=== PATIENT | male | born 1940 | race Caucasian/White ===

== ENCOUNTER 2016-09-27 21:52 | Inpatient (IN) | payer MEDICARE, OTHER ==
[~2016-09-27] VITALS: Ht 167.6 cm; Wt 87.9 kg
[~2016-09-27 21:52] MED LIST: ATOR40TA69 PO; CALC600T12 PO; FAMO20T PO; FERR-74 PO; HYDR-3825 PO; LEVO750T9 PO; LORA0.5T PO; MAGN400T23 PO; MELA5TAB14 PO; NICO1PAT5 TOPICAL; POTA10TA12 PO; PROP60CA8 PO; TAMS0.4C98 PO; Thiamine PO
[2016-09-27 21:54] VITALS: BP 195/105; PULSE 74; RESP 16; O2SAT 96
--- NOTE | 2016-09-27 22:10 | ED.REPORT ---
HPI-General Illness Date of Service Sep 27, 2016 ED Provider: Ashok Davis MD The patient is a 75 year old male with a history of Afib, CVA and HTN who presents to the ED due to bilateral swelling in his ankles and feet for the past 3 to 4 weeks. He has experienced mild swelling previously, but never this severe. He denies any incident that could have caused his symptoms. The pt also states that just today, he has noticed stiffness and swelling in his right arm as well as increasing dyspnea. He was hospitalized for pneumonia a year ago. Pt denies neck pain and a productive cough. His son was diagnosed with pulmonary embolism without known cause. Nursing Notes Stated Complaint: SWOLLEN Chief Complaint: General Complaint Nursing Notes Reviewed: Yes Allergies: Coded Allergies: No Known Allergies (Verified Allergy, Unknown, 12/18/15) Scheduled Atorvastatin Calcium (Atorvastatin Calcium) 40 Mg Tablet 40 MG PO HS Propranolol ER (Inderal LA) 60 Mg Capsule 60 MG PO DAILY Tamsulosin (Flomax) 0.4 Mg Capsule 0.4 MG PO DAILY Trazodone (Trazodone) 50 Mg Tablet 100 MG PO HS General Time Seen by MD: 22:10 Chief Complaint Other (bilateral ankle and foot swelling) Hx Obtained From: Patient Arrived By: Walk-in Sudden in Onset?: Yes Onset Occurred: More than a week ago... (3 weeks) Symptom Duration: Since onset Severity: Current: No pain currently Recent Healthcare: No recent doctor visit, No recent hospitalization Past Medical History Past Medical History 1. 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 Peptic ulcer disease. 3. Depression and anxiety. 4. Hypertension. 4. Peripheral vascular disease with right superficial femoral artery stenosis August 2013 by Doppler. 6. Esophageal stricture with need for intermittent dilatation (last dilatation was January 02, [address] Tian ) EGD(January 02, 2014) Esophageal peptic stricture status post dilatation to 11.5 mm. Ulcerative esophagitis. Sliding hiatal hernia. 7. Macular degeneration. 8. Ulcerative esophagitis and peptic stricture 9. Hx of Daily alcohol dependence 10. Hx of clostridium perfringens 11. Atrial fibrillation, not on blood thinner currently Reports: Hypertension, Stroke Reports: Atrial fibrillation Past Surgical History 1. Tonsillectomy. 2. Left rotator cuff repair. Family History pulmonary embolism Smoking History Former Smoker Social History Son is POA Alcohol Use: 3-5 per day Drug Use: Denies drug use Other Social History: Smokeless tobacco, Good social support, Lives alone, Ambulatory Status Independent Review of Systems Full Review of Systems Respiratory: Reports: Shortness of breath, Denies: Non-productive cough Musculoskeletal: Reports: Extremity swelling (bilateral ankle and feet swelling ), Denies: Extremity pain, Neck pain Complete sys rev & neg: except as marked. Physical Exam Vital Signs Vital Signs Date Time Temp Pulse Resp B/P Pulse Ox O2 Delivery O2 Flow Rate FiO2 09/27/16 23:19 61 12 156/85 94 Room Air 09/27/16 21:54 36.3 74 16 195/105 96 Room Air Initial VS: Reviewed Head / Eyes: Atraumatic, Normocephalic, PERRL ENT: Mucous membranes moist Abdomen / GI: Soft, Non-tender, No guarding, No rebound, No distention Skin: Warm, Dry General/Constitutional: Awake, Alert, No acute distress Neck: Non-tender Neck Vascular: Positive: JVD mild (3cm sitting upright above sternal notch) Respiratory / Chest: No wheezing, No retractions crackles bilateral bases Cardiovascular: Heart rate NL, Regular rhythm, Heart sounds NL Lower Ext Edema: Positive: Bilateral 2+ (chronic) Interpretation & Diagnostics Interpretation & Diagnostics: CT PULMONARY ANGIOGRAM IMPRESSION: No evidence for PE Cardiomegaly with prominence of the upper lobe and central pulmonary veins and bilateral pleural effusions. In the proper clinical setting pulmonary venous hypertension should be considered. Radiologist: Denis Spencer M.D. Lab Results Interpretation Result Diagram: 09/27/16222909/27/162229 Test 09/27/16 22:30 09/27/16 22:45 White Blood Count 10.1th/mm3 (3.8-10.1) Red Blood Count 4.94mil/mm3 (4.40-5.80) Hemoglobin 15.3g/dL (13.8-17.2) Hematocrit 46.1% (41.0-50.0) Mean Corpuscular Volume 93.3fL (81-100) Mean Corpuscular Hemoglobin 31.0pg (27.0-35.0) Mean Corpuscular Hemoglobin Concent 33.2% (32.0-37.0) Red Cell Distribution Width 13.7% (12.3-15.4) Platelet Count 187bil/L (150-400) Neutrophils (%) (Auto) 60.0% (40-74) Lymphocytes (%) (Auto) 22.6% (14-46) Monocytes (%) (Auto) 13.8% (4-12) Eosinophils (%) (Auto) 2.9% (0-5) Basophils (%) (Auto) 0.3% (0-3) Prothrombin Time 10.2sec (8.1-12.5) Prothromb Time International Ratio 0.95ratio Activated Partial Thromboplast Time 27.0sec (22.8-33.0) D-Dimer 0.70mg/L FEU (<0.50) Sodium Level 139mEq/L (134-144) Potassium Level 4.0mEq/L (3.5-5.2) Chloride Level 101mEq/L (97-108) Carbon Dioxide Level 23mmol/L (18-29) Blood Urea Nitrogen 19mg/dL (8-27) Creatinine 1.09mg/dL (0.76-1.27) Estimat Glomerular Filtration Rate 70mL/min (>59) Glucose Level 99mg/dL (60-99) Calcium Level 9.7mg/dL (8.5-10.1) Magnesium Level 2.1mg/dL (1.6-2.6) Total Bilirubin 0.5mg/dL (0.0-1.2) Aspartate Amino Transf (AST/SGOT) 18U/L (0-50) Alanine Aminotransferase (ALT/SGPT) 18U/L (0-44) Alkaline Phosphatase 79U/L (25-160) Troponin T 0.010ug/L (0.0-0.011) Pro-B-Type Natriuretic Peptide 2137pg/mL (0-486) Total Protein 7.4g/dL (6.4-8.4) Albumin 4.2g/dL (3.4-5.0) Thyroid Stimulating Hormone (TSH) 5.300uIU/mL (0.450-4.500) Urine Color Straw (YELLOW) Urine Appearance Clear (CLEAR,HAZY) Urine pH 7.0 (5.0-8.0) Urine Specific [place] 1.010 (1.003-1.035) Urine Protein Negativemg/dL (NEG,TRACE) Urine Glucose (UA) Negativemg/dL (NEGATIVE) Urine Ketones Negativemg/dL (NEGATIVE) Urine Occult Blood Negative (NEGATIVE) Urine Nitrite Negative (NEGATIVE) Urine Bilirubin Negative (NEGATIVE) Urine Urobilinogen Normalmg/dL (NORMAL) Urine Leukocyte Esterase Negative (NEGATIVE) Urine RBC 0-2/hpf (0-2) Urine WBC 0-5/hpf (0-5) Urine Epithelial Cells Occasional/hpf (NONE-MOD) Urine Crystals None seen (NONE SEEN) Urine Bacteria None/hpf (NONE-FEW) Urine Hyaline Casts None/lpf (NONE) Urine Granular Casts None seen (NONE SEEN) Urine Waxy Casts None seen (NONE SEEN) Urine Red Blood Cell Casts None seen (NONE SEEN) Urine White Blood Cell Casts None seen (NONE SEEN) Urine Mucus None seen (None Seen) Urine Trichomonas None seen (NONE SEEN) Urine Yeast None (NONE SEEN) Urine Culture Reflexed Not indicated ECG Interpretation ECG Interpretation: atrial fibrillation (rate 72) Time: 10:52 Interpreted by: ED physician X-Ray Chest Interpretation Chest Xray Interpretation: IMPRESSION: no acute findings View: Portable Interpretation / Wet Read by: Wet read ED physician Re-Eval/Medical Decision Med Decision/Clinical Course 76-year-old with bilateral leg edema and dyspnea which appears to be due to congestive heart failure. Ultrasounds morning to exclude clot but this appears to be related to fluid overload Admitted now for cardiac evaluation including completion of rule out protocol, diuresis, and echocardiogram. Time of Eval: 00:16 Re-Evaluation/Progress Note: Pt rechecked. Informed pt of options for admission or discharge. Pt prefers to remain in the hospital for further evaluation. All questions addressed. Consultation : Referral / Consult Name: Michael Maher MD Consulted With: Hospitalist Call Returned at: 00:31 Explosive Ordnance Technician: Agrees with eval, Agrees with plan Note: Case discussed. Dr. Maher agrees with plan. Counseled Regarding: Diagnosis, Lab results, Need for admission Discharge & Departure Primary Impression: CHF (congestive heart failure) Congestive heart failure type: unspecified congestive heart failure type Congestive heart failure chronicity: unspecified congestive heart failure chronicity Qualified Code: I50.9 - Heart failure, unspecified Additional Impressions: Peripheral edema Atrial fibrillation Atrial fibrillation type: chronic Qualified Code: I48.2 - Chronic atrial fibrillation Disposition: ADMITTED TO HOSPITAL Discharge Condition All VS Reviewed: Yes Condition: Stable Referrals: Carlitos Porter MD (PCP) Ila Attestation Portion of this note were transcribed by Arlene Choi. I, Dr. Davis, personally performed the history, physical exam, and medical decision-making: I reviewed and confirmed the accuracy for the information in the transcribed note. Signed by: ila No, 09/28/16 010 copies to: Carlitos Porter MD, Christopher W MD Sep 27, 2016 22:10 Arlene Choi Sep 27, 2016 22:34 Signed by: ila No, 09/28/160 copies to: Carlitos Porter MD, Christopher W MD Sep 27, 2016 22:10 Arlene Choi Sep 27, 2016 22:34 Ashok Davis MD Sep 27, 2016 22:10 Arlene Choi Sep 27, 2016 22:34
[2016-09-27 22:48] LABS: BASOPHILS % (AUTO) 0.3 % (0-3); EOSINOPHILS % (AUTO) 2.9 % (0-5); MONOCYTES % (AUTO) 13.8 % (4-12); Mean Corpuscular Volume 93.3 fL (81-100); Platelet Count 187 bil/L (150-400)
[2016-09-27 23:04] LABS: INR 0.95 ratio
[2016-09-27 23:09] LABS: TROPONIN T 0.01 ug/L (0.0-0.011)
[2016-09-27 23:19] VITALS: BP 156/85; PULSE 61; RESP 12; O2SAT 94
[2016-09-27 23:20] LABS: Magnesium 2.1 mg/dL (1.6-2.6)
[2016-09-27 23:53] LABS: APPEARANCE,URINE CLEAR (CLEAR,HAZY); COLOR,URINE STRAW (YELLOW); OCCULT BLOOD,URINE NEGATIVE (NEGATIVE); UROBILINOGEN,URINE NORMAL (NORMAL)
[2016-09-28] VITALS (10 sets, daily range): BP systolic 109–204; BP diastolic 71–117; PULSE 64–82; RESP 16–18; O2SAT 93–97
[2016-09-28] MEDS ORDERED: Alum-Mag Hydrox-Simeth 30 mL Suspension PO PRN (00:35)
[2016-09-28] MEDS ORDERED: Ondansetron 2 mg/mL 2 mL Inj IVPUSH PRN (00:35)
[2016-09-28] MEDS ORDERED: Senna-Docusate 8.6-50 mg Tablet PO PRN (00:35)
[2016-09-28] MEDS ORDERED: Polyethylene Glycol (PEG) 17 Gm Powder PO PRN (00:35)
[2016-09-28] MEDS ORDERED: Furosemide 10 mg/mL 4 mL Inj IVPUSH ONE (01:25)
[2016-09-28] MEDS ORDERED: TRAZ-115 PO (01:35)
[2016-09-28] MEDS ORDERED: Nitroglycerin 2% 1 Gm Ointment TOPICAL ONE (02:40)
--- NOTE | 2016-09-28 03:02 | PCM.HPMED ---
Subjective Date of Service Sep 28, 2016 Primary Provider: Admitting Physician: Primary Care Physician: Diego Owusu MD Attending Physician: Admit Status: From the Emergency Department, Full Admit, Remote Telemetry Chief Complaint: Increased leg edema with dyspnea History of Present Illness: Erik Mary is a 75 year old male with Paroxysmal Atrial Fibrillation, Stroke and Hypertension who presents to [facility] emergency department due to bilateral swelling in his ankles and feet and dyspnea on exertion. Duration for the past 3 to 4 weeks. He has experienced mild swelling previously , but never this severe. Today, he has noticed stiffness and swelling in his right arm as well. He denied any orthopnea or paroxysmal nocturnal dyspnea. He is compliant with his medications including Propranolol and Statin. He denies eating alot of salt. He denies any chest pain or productive cough He was hospitalized for pneumonia a year ago. His son was diagnosed with pulmonary embolism. He lives alone independently able to perform activities of daily living. Previous episode of atrial fibrillation but not sustained. Case discussed with Dr Davis, Ct chest showed no Pulmonary embolism but Lasix given with plans to admit. Review of Systems: Pertinent positives as noted in HPI. All other systems were reviewed and are negative Allergies Coded Allergies: No Known Allergies (Verified Allergy, Unknown, 12/18/15) Home Medications From [facility], not yet confirmed Erik Mary [phone] 1940 08/21/2016 01:50 PM 1/8 atorvastatin 40 mg tablet take 1 tablet by oral route every day Trazodone 100 mg 1 tab HS for sleep propranolol 80 mg tablet take 1 tablet by oral route every day tamsulosin 0.4 mg capsule take 1 capsule by oral route every day 1/2 hour following the same meal each day PMH Hypertension Sick sinus syndrome Cerebral cavernous malformation. 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 Tian ) EGD(January 02, 2014) : Esophageal peptic stricture status post dilatation to 11.5 mm. Ulcerative esophagitis. Sliding hiatal hernia Macular degeneration Ulcerative esophagitis and peptic stricture Nodular prostate/BPH without obstruction . Surgical History Rotator cuff repair Family History reviewed, Denies FHx of diabetes, colon cancer, lung cancer Admits to breast cancer, prostate cancer Son diagnosed with Pulmonary embolism Social History Hx Alcohol Use: Yes (Reports: daily mug of beer, plus occasional wine, double shots hard liquor) Hx Substance Use: No Hx Tobacco Use: Yes (chew 1 can every 3-4 days; quit smoking x30 years ago) Smoking Status: Former Smoker Living Arrangement: Alone Exam Vital Signs Vital Sign - Last Date Time Temp Pulse Resp B/P Pulse Ox O2 Delivery O2 Flow Rate FiO2 09/27/16 23:19 61 12 156/85 94 Room Air 09/27/16 21:54 36.3 Exam General: Alert, Oriented X3, Cooperative, No acute Distress Eyes: PERRLA, Scleral Anicteric Mouth: Mouth Normal, Mucous Membranes Moist/[place] Neck: Supple, no Thyromegaly, trachea central. Chest & Lungs: decreased breathe sounds at bases Cardiovascular: Normal S1, Normal S2, No Murmurs/Rubs/Gallops, Regular Rate/ Rhythm, (No JVD, 1 + peripheral edema) Pulses: Radial (present and equal), Dorsalis Pedi (present and equal) Abdomen: Soft, Non-tender, Non-distended, Normoactive bowel tones. Musculoskeletal: Unremarkable. Normal range of motion, no swollen or erythematous joints Extremities: 1 + leg edema, no cyanosis, no clubbing. Skin: No rashes. Warm and dry, no erythematous areas Neurological: Grossly neurologically intact, has generalized weakness, Normal Speech, Sensation Intact Lymphatic: Lymph nodes Cervical and Axillary not palpable. Lab and Diagnostics Labs Laboratory Tests Test 09/27/16 22:30 09/27/16 22:45 White Blood Count 10.1th/mm3 (3.8-10.1) Red Blood Count 4.94mil/mm3 (4.40-5.80) Hemoglobin 15.3g/dL (13.8-17.2) Hematocrit 46.1% (41.0-50.0) Mean Corpuscular Volume 93.3fL (81-100) Mean Corpuscular Hemoglobin 31.0pg (27.0-35.0) Mean Corpuscular Hemoglobin Concent 33.2% (32.0-37.0) Red Cell Distribution Width 13.7% (12.3-15.4) Platelet Count 187bil/L (150-400) Neutrophils (%) (Auto) 60.0% (40-74) Lymphocytes (%) (Auto) 22.6% (14-46) Monocytes (%) (Auto) 13.8% (4-12) Eosinophils (%) (Auto) 2.9% (0-5) Basophils (%) (Auto) 0.3% (0-3) Prothrombin Time 10.2sec (8.1-12.5) Prothromb Time International Ratio 0.95ratio Activated Partial Thromboplast Time 27.0sec (22.8-33.0) D-Dimer 0.70mg/L FEU (<0.50) Sodium Level 139mEq/L (134-144) Potassium Level 4.0mEq/L (3.5-5.2) Chloride Level 101mEq/L (97-108) Carbon Dioxide Level 23mmol/L (18-29) Blood Urea Nitrogen 19mg/dL (8-27) Creatinine 1.09mg/dL (0.76-1.27) Estimat Glomerular Filtration Rate 70mL/min (>59) Glucose Level 99mg/dL (60-99) Calcium Level 9.7mg/dL (8.5-10.1) Magnesium Level 2.1mg/dL (1.6-2.6) Total Bilirubin 0.5mg/dL (0.0-1.2) Aspartate Amino Transf (AST/SGOT) 18U/L (0-50) Alanine Aminotransferase (ALT/SGPT) 18U/L (0-44) Alkaline Phosphatase 79U/L (25-160) Troponin T 0.010ug/L (0.0-0.011) Pro-B-Type Natriuretic Peptide 2137pg/mL (0-486) Total Protein 7.4g/dL (6.4-8.4) Albumin 4.2g/dL (3.4-5.0) Urine Color Straw (YELLOW) Urine Appearance Clear (CLEAR,HAZY) Urine pH 7.0 (5.0-8.0) Urine Specific [place] 1.010 (1.003-1.035) Urine Protein Negativemg/dL (NEG,TRACE) Urine Glucose (UA) Negativemg/dL (NEGATIVE) Urine Ketones Negativemg/dL (NEGATIVE) Urine Occult Blood Negative (NEGATIVE) Urine Nitrite Negative (NEGATIVE) Urine Bilirubin Negative (NEGATIVE) Urine Urobilinogen Normalmg/dL (NORMAL) Urine Leukocyte Esterase Negative (NEGATIVE) Urine RBC 0-2/hpf (0-2) Urine WBC 0-5/hpf (0-5) Urine Epithelial Cells Occasional/hpf (NONE-MOD) Urine Crystals None seen (NONE SEEN) Urine Bacteria None/hpf (NONE-FEW) Urine Hyaline Casts None/lpf (NONE) Urine Granular Casts None seen (NONE SEEN) Urine Waxy Casts None seen (NONE SEEN) Urine Red Blood Cell Casts None seen (NONE SEEN) Urine White Blood Cell Casts None seen (NONE SEEN) Urine Mucus None seen (None Seen) Urine Trichomonas None seen (NONE SEEN) Urine Yeast None (NONE SEEN) Urine Culture Reflexed Not indicated Hold Urine Received (Received) Result Diagram: 09/27/16222909/27/162229 X-Rays, CTs and MRIs X-Ray Chest Interpretation IMPRESSION: no acute findings View: Portable Interpretation / Wet Read by: Génesis read ED physician CT Abd / Pelvis Interpretation Impression: no acute findings Study type: Abdominal CT no contrast Interpretation / Wet Read by: Wet read ED physician Assessment & Plan Erik Mary is a 75 year old male with Paroxysmal Atrial Fibrillation, Stroke and Hypertension who presents to [facility] emergency department due to bilateral swelling in his ankles and feet and dyspnea on exertion. 1. Dyspnea with bilateral leg edema due to Acute Congestive Heart Failure. Present on admission Dyspnea on exertion with leg edema. No prior confirmed diagnosis of congestive heart failure but does have risk factors - complete echo tomorrow - diuretics with Lasix 40 mg IV bid - Lisinopril 5 mg daily with Nitroglycerine - Initiate beta tasha once stable prior to discharge - CHF clinic referral - discussed low sodium diet and daily weight at home 2. Paroxysmal Atrial Fibrillation Rate controlled currently. [id number] score 6 (Stroke risk 9.8%/yr) Anticoagulations indicated - monitor on telemetry - patient should be on anticoagulations 3 Hypertension. Chronic Uncontrolled due to Congestive heart failure - stopping Propranolol - initiating Lisinopril 5 mg daily 4 Benign Prostatic Hypertrophy - continuing Flomax 0.4 mg daily - Acetaminophen as needed for mild pain/fever/headache - Bowel regimen as needed - Antiemetic as needed Patient admitted under inpatient status with expected length of stay > 2 midnights for severity of present symptoms, complexities of treatment plan and risk for adverse event . Resuscitation Status: CPR: Attempt Resuscitation Michael Maher MD Sep 28, 2016 00:37
--- NOTE | 2016-09-28 06:14 | NUR ---
Ar[place] [facility] Patient arrived at 0100. alert and orientedx4 able to make needs known. cooperative with care. reports chronic pain 5/10 that he does not want anything for. admission assessment completed. patient home medications sent down to pharmacy. Patient BP elevated 200 systolic. patient was given lasix 40mg IV and BP decreased to 157 systolic, patient was given lisinopril. at 0600 patients BP 152 systolic. held ordered nitropaste at this time. vitals stable. will continue to monitor
--- NOTE | 2016-09-28 08:10 | DRSVH ---
PROCEDURE: CT ANGIO CHEST PULMONARY EMBOLISM ([id number]) INDICATIONS: sob, edema, elevated d dimer TECHNIQUE: After the administration of intravenous contrast, 2 mm thick sections acquired from the pulmonary api naveen to the posterior costophrenic angles. 3-dimensional maximum intensity projection (MIP) coronal a nd sagittal reformats were then acquired through the thorax. For radiation dose reduction, the follo wing was used: automated exposure control, adjustment of mA and/or kV according to patient size. COMPARISON: [facility], CT, CHEST ANGIO-PE, 11/16/2013, 11:47. FINDINGS: Image quality: Excellent. Pulmonary arteries: Pulmonary arteries are normal in size, and demonstrate no intraluminal filling d efects to suggest central pulmonary embolism. Lungs and pleura: Atelectasis noted in the dependent portions of the lungs. Scattered groundglass opa cities and prominence of the pulmonary veins noted in the central and upper lung zones which is nonsp ecific, but can be associated with pulmonary venous hypertension; please correlate with clinical data . No pleural effusions or pneumothorax. Central and peripheral airways are patent. Mediastinum: Heart size is enlarged, without pericardial effusion. Atherosclerotic calcifications ar e noted in the aorta, great vessels and the pulmonary vasculature. No mediastinal or hilar adenopathy . Thoracic aorta is normal in caliber and enhancement. Esophagus is normal in caliber, without hiat al hernia. Bones and chest wall: No suspicious bony lesions. Ribs and thoracic spine appear intact throughout. Thyroid gland is within normal limits. No axillary or supraclavicular adenopathy. Abdomen: Hiatal hernia is noted. Gallstones noted in the gallbladder. IMPRESSION: 1. No pulmonary embolus. 2. Cardiomegaly. 3. Scattered groundglass opacities and prominence of the pulmonary veins in the central and upper shalini g zones which can be associated with pulmonary venous hypertension. Please correlate with clinical da ta. 4. Atherosclerosis including the coronary vasculature. 5. Hiatal hernia. 6. Cholelithiasis. Dictated by: Erika Syed MD, PhD on 09/28/2016 at 8:02 Approved by: Erika Syed MD, PhD on 09/28/2016 at 8:08
--- NOTE | 2016-09-28 08:20 | NUR ---
Social WorK-Initial Assessment Late Entry Data & Assessment: See Initial Assessment. EMR reviewed. Patient is a 76 y/o male that admitted on 09/28 with Edema and AFIB pre H&P. SW met with patient at bedside to complete initial assessment, discuss discharge planning and SW role reviewed. Patient confirmed Dr. Owusu as his PCP and insurance as Medicare and [employer]. Med. Supp. Patient has no VA and not LTC benefits. Patient reports that he does have an Advance Directive/DPOA and SW requested a copy. Patient's NOK is his son Joshua Mary [phone]. Patient does not have a re-admot score Patient lives home nando in an RV with four steps to enter. Patient drives and is independent at base line. Patient has a FWW that he use sometimes. Patient has history at [facility] and has never had HH. Patient states that he will catch a taxi home. Patient does not have any discharge needs at this time. SW will continue to follow. Plan: Patient will likely discharge home no needs. SW will continue to follow. Heather Calle LMSW, [facility] Addendum: 09/29/16 at 0835 by HEATHER CALLE Amended: Links added.
[2016-09-28] MEDS: Sodium Chloride LOK Flush 10 mL Syringe IVFLUSH SCH ×2 (08:55→17:18)
[2016-09-28] MEDS: Furosemide 10 mg/mL 4 mL Inj IVPUSH SCH ×2 (08:56→20:40)
[2016-09-28] MEDS: Heparin 5,000 Unit/mL Inj SUBQ SCH ×2 (08:56→17:18)
--- NOTE | 2016-09-28 09:08 | DRSVH ---
PROCEDURE: X-RAY CHEST ONE VIEW, PORTABLE ([id number]) INDICATIONS: Congestive heart failure. TECHNIQUE: One view of the chest was acquired. COMPARISON: [facility], CR, XR CHEST 1VW (PORTABLE), 12/18/2015, 17:28. FINDINGS: Surgical changes and devices: None. Lungs and pleura: No pleural effusions or pneumothorax. Lungs are clear. Mediastinum: Mediastinal contours appear normal. Heart size is normal. Bones and chest wall: No suspicious bony lesions. Overlying soft tissues appear unremarkable. Chron ic right rib fractures are stable compared to prior examination. IMPRESSION: No acute cardiopulmonary disease process. Dictated by: Erika Syed MD, PhD on 09/28/2016 at 9:05 Approved by: Erika Syed MD, PhD on 09/28/2016 at 9:07
[2016-09-28 09:43] LABS: Creatine Kinase 64 U/L (21-232)
--- NOTE | 2016-09-28 10:51 | DRSVH ---
[facility] [address] [place] [address] Echocardiogram Report Name: STACEY REES EStudy Date: 09/28/2016 Height: 66 in Hospital Exam Location: [facility] Weight: 200 lb Gender: Male BSA: 2. 0 m2 : 1940 Age: 76 yrs BP: 152 /92 mmHg Reason For Study: SOB Ordering Physician: HOSPITALIST [facility] Performed By: Rachel Stephens Referring Physician: Dr. Carlitos Porter Interpretation Summary The patient was in atrial fibrillation with controlled ventricular rate during the exam. The left ventricle is normal in size, wall thickness, and systolic function without any focal wall motion abnormalities. The ejection fraction is estimated to be 60-65%. Diastolic function could not be accurately assessed due to atrial fibrillation. The right ventricle is normal in size, thickness and function. The right ventricular systolic pressure is estimated at 34 mmHg assuming a right atrial pressure of 3 mm Hg. The left atrium is severely dilated. The right atrium is mildly dilated. There is no significant valvular heart disease. The ascending aorta is mildly enlarged. Procedure: A two-dimensional transthoracic echocardiogram with color flow and Doppler was performed. The study quality was technically adequate. There is no prior echocardiogram noted for this patient. The patient was in atrial fibrillation with controlled ventricular rate during the exam. The heart rate ranged between 65-79 bpm during the study. Left Ventricle: The left ventricle is normal in size, wall thickness, and systolic function without any focal wall motion abnormalities. The ejection fraction is estimated to be 60-65%. Diastolic function could not be accurately assessed due to atrial fibrillation. Right Ventricle: The right ventricle is normal in size, thickness and function. Atria: The left atrium is severely dilated. The right atrium is mildly dilated. The interatrial septum is intact with no evidence for an atrial septal defect. Mitral Valve: The mitral valve leaflets appear mildly thickened, but open well. There is trace mitral regurgitation. Aortic Valve: The aortic valve is trileaflet. The aortic valve opens well. There is mild aortic valve sclerosis. No aortic regurgitation is present. Tricuspid Valve: The tricuspid valve is normal in structure and function. There is trace tricuspid regurgitation. The right ventricular systolic pressure is estimated at 34 mmHg assuming a right atrial pressure of 3 mm Hg. Pulmonic Valve: The pulmonic valve is normal in structure and function. There is trace pulmonic regurgitation. There is no significant valvular heart disease. Great Vessels: The aortic root is normal size. The ascending aorta is mildly enlarged. The IVC is of normal diameter and collapses greater than 50% with a sniff. This suggests a low right atrial pressure of 3 mm Hg. Pericardium/ Pleura There is no pericardial effusion. There is a cicumferential fat pad. There is no pleural effusion. MMode/2D Measurements & Calculations LVIDd: 4.2 cm RA long axis Ao root diam LVIDs: 2.8 cm LA A2 area: 25.1 cm FS: 32.8 % LA A4 area: 27.1 cm RA area Aortic Jxn EPSS: 0.58 cm LA length (vol): 5.5 cm IVSd: 0.86 cm LA vol: 104.6 ml : 22.3 cm asc Aorta LVPWd: 0.91 cm LA vol index RA vol: 63.6 mlDiam: 3.6 cm RA : 31.8 mm/ IVC diam: 2.0 cm RVDd major : 6.4 cm LV ramirez. diameter/BSA LV sys. diameter/BSA RVD1 (basal) RVD2 (mid) (cm/m^2): 2.1 (cm/m^2): 1.4 : 2.6 cm Doppler Measurements & Calculations Ao V2 max MV E max carroll MV E/A: 3.4 TR max carroll : 135.4 cm/sec : 88.3 cm/sec Med Peak E' Carroll : 277.0 cm/sec Ao max PG MV A max carroll TR max PG : 7.3 mmHg : 25.6 cm/sec E/E' med: 15.2 : 30.7 mmHg Ao mean PG MV P1/2t: 58.1 msec Lat Peak E' Carroll PA V2 max : 4.1 mmHg : 85.4 cm/sec E/E' lat: 12.2 PA mean PG E/e' average: 13.7 PA Accel Time : 0.09 sec MV dec time MV P1/2t max carroll Ao V2 mean PA V2 mean : 0.19 sec : 95.6 cm/sec : 51.7 cm/sec MVA(P1/2t): 3.8 cm2 Ao V2 VTI: 27.3 cm Reading Physician:CEDRIC
--- NOTE | 2016-09-28 13:15 | NUR ---
Pain Pt reports generalized pain through back, shoulders and hips 6/10 on pain scale. Pain triggered by movement. Offered Tylenol as ordered. Pt accepted, 650 mg of Tylenol administered. Pt reports decreased pain level, reports feeling some relief. Encouraged to contact staff for additional needs. Call light with in reach will continue to monitor.
--- NOTE | 2016-09-28 13:58 | DRSVH ---
PROCEDURE: US VENOUS LEG DUPLEX BILATERAL INDICATIONS: bilat edema, elevated dimer TECHNIQUE: Real-time imaging, as well as color and pulse Doppler interrogation, were performed of the deep veins of both legs from the inguinal ligament to the popliteal fossa. COMPARISON: None. FINDINGS: The deep veins are normally compressible, and free of intraluminal thrombus. Color and pu lse Doppler demonstrate normal phasic intravascular flow. There is normal augmentation response to d istal compression maneuver. IMPRESSION: No evidence of deep vein thrombosis involving either the right or left lower extremities . Dictated by: Erika Syed MD, PhD on 09/28/2016 at 13:56 Approved by: Erika Syed MD, PhD on 09/28/2016 at 13:56
[2016-09-28 16:07] LABS: TROPONIN T < 0.010 ug/L (0.0-0.011)
[2016-09-28 16:15] LABS: Creatine Kinase 75 U/L (21-232)
--- NOTE | 2016-09-28 16:45 | NUR ---
Ambulation Pt ambulated half way [place] [facility] [place] Steady gait however not able to ambulate for long distances due to hip discomfrt. Pt is seated in chair in the outer vista of unit, resting comfortably. Encouraged to contact staff for any additional needs.
[2016-09-29] VITALS (11 sets, daily range): BP systolic 80–156; BP diastolic 48–94; PULSE 69–100; RESP 18–21; O2SAT 95–97
[2016-09-29] MEDS: Sodium Chloride LOK Flush 10 mL Syringe IVFLUSH SCH ×3 (00:27→16:52)
[2016-09-29] MEDS: Heparin 5,000 Unit/mL Inj SUBQ SCH ×3 (00:27→09:14)
[2016-09-29 01:21] LABS: Creatine Kinase 87 U/L (21-232)
--- NOTE | 2016-09-29 06:31 | NUR ---
Insomnia/ Hypotension pt reported not being able to sleep during the night. pt has been up amb in the hallway, up to the recliner, up to the reg chair and then back to bed. reports that the insomnia is an "ongoing issue" and that "this is not new" for him. pt did take scheduled sleeping medication at HS without effect, pt reports that they "don't work at home either". pt did have an episode of hypotension, asymptomatic, that resolved without intervention. orthostatic VS were negative. pt only complained of "not able to sleep" and his generalized "fibromyalgia" pain that PRN Tylenol has been effective for. pt is A&Ox3, using call light appropriately, placed within reach.
[2016-09-29 06:40] LABS: BASOPHILS % (AUTO) 0.4 % (0-3); EOSINOPHILS % (AUTO) 2.2 % (0-5); MONOCYTES % (AUTO) 13.3 % (4-12); Mean Corpuscular Hemoglobin 30.5 pg (27.0-35.0); Mean Corpuscular Volume 92.1 fL (81-100); NEUTROPHILS % (AUTO) 60.3 % (40-74); Platelet Count 195 bil/L (150-400)
[2016-09-29 07:29] LABS: Magnesium 2.2 mg/dL (1.6-2.6); Phosphorus 5.2 mg/dL (2.5-4.9)
[2016-09-29] MEDS: Furosemide 10 mg/mL 4 mL Inj IVPUSH SCH ×2 (08:30→21:13)
--- NOTE | 2016-09-29 13:00 | NUR ---
Pain Pt reports pain with activity, would like to try taking some Tylenol at this time. PO Tylenol given as requested, will continue to monitor. Call light within reach.
--- NOTE | 2016-09-29 22:08 | PCM.PNMED ---
Subjective Date of Service Sep 29, 2016 Subjective The patient is feeling better. He states that the edema in his legs and right upper extremity have improved. He is feeling better. Exam Vital Signs Vital Sign - Last Date Time Temp Pulse Resp B/P Pulse Ox O2 Delivery O2 Flow Rate FiO2 09/29/16 20:44 36.9 95 21 156/94 96 Room Air Intake and Output 09/28/16 09/28/16 09/29/16 Cumulative From/Thru 15:00 23:00 07:00 09/27/16 21:54 - 09/29/16 06:38 Intake Total 1150 ml 200 ml 1370 ml Output Total 986 ml 575 ml 3361 ml Balance 164 ml -375 ml -1991 ml Intake Oral 1150 ml 200 ml 1370 ml Output Urine Total 986 ml 575 ml 3361 ml # Bowel Movements 0 0 Exam General: Patient is sitting up in a bedside chair in no apparent distress. HEENT: Head is atraumatic and normocephalic with normal male pattern baldness. Eyes: Pupils are equally round and reactive to light and accommodation. Extraocular muscles are intact. Sclera are white, anicteric. Subconjunctival mucosa is pink. Ears and nose are unremarkable. Oropharynx: There is no mucosal lesions, there is no thrush, there is no pharyngitis. Neck: Is supple, there are no nodes, or masses or tenderness. Chest: Is clear to auscultation and percussion. There are no rales, rhonchi, wheezes or rubs. Heart: Rate, rhythm is regular. There is no murmur, rub or gallop. Abdomen: Good bowel sounds are present. Abdomen is soft, nontender, no organomegaly or masses were appreciated. Extremities: Are symmetrical and well perfused. There is minimal to no edema, there is no cellulitis, no rash. There is wrinkling of the skin on the right upper extremities and both lower extremities indicating improvement in edema. Neurologic: There are no focal neurological deficits. Cranial nerves II through XII are intact. There are no sensory or motor deficits. Psychiatric: Patients mood is calm and shows no sign of agitation. Genital: Deferred Rectal: Deferred Lab and Diagnostics Result Diagram: 09/29/16 0545 09/29/16 0545 X-Rays, CTs and MRIs X-Ray Chest Interpretation IMPRESSION: no acute findings View: Portable Interpretation / Wet Read by: Génesis farris ED physician CT Abd / Pelvis Interpretation Impression: no acute findings Study type: Abdominal CT no contrast Interpretation / Wet Read by: Génesis farris ED physician Assessment & Plan Erik Mary is a 75 year old male with Paroxysmal Atrial Fibrillation, Stroke and Hypertension who presents to [facility] emergency department due to bilateral swelling in his ankles and feet and dyspnea on exertion. 1. Dyspnea with bilateral leg edema due to Acute Congestive Heart Failure. Present on admission Dyspnea on exertion with leg edema. No prior confirmed diagnosis of congestive heart failure but does have risk factors - We will check complete echocardiogram - Continue diuretics with Lasix 40 mg IV bid pain decreased to 40 by mouth daily in a.m. - Continue Lisinopril 5 mg daily with Nitroglycerine - Initiate beta tasha once stable prior to discharge. Will start carvedilol 3.125 mg by mouth twice a day in a.m. - CHF clinic referral - We have discussed low sodium diet and daily weight at home 2. Paroxysmal Atrial Fibrillation Rate controlled currently. [id number] score 6 (Stroke risk 9.8%/yr) Anticoagulations indicated - We will continue to monitor on telemetry - The patient should be on anticoagulations. We will discuss this with patient. 3. Hypertension. Chronic Uncontrolled due to Congestive heart failure - Propranolol has been stopped - We will continue Lisinopril 5 mg daily - We will add carvedilol 3.125 mg by mouth twice a day in a.m. 4. Benign Prostatic Hypertrophy - We will continue Flomax 0.4 mg daily - Acetaminophen as needed for mild pain/fever/headache - Bowel regimen as needed - Antiemetic as needed Disposition: Patient will need to be hospitalized for another 24-48 hours for the treatment of the above conditions. . Pain Evaluation: Adequate Pain Control GI Prophylaxis: Not indicated VTE Prophylaxis: Sub-Q Heparin (Unfractionated) Resuscitation Status: CPR: Attempt Resuscitation Ashok Burciaga MD Sep 29, 2016 22:08
[2016-09-30] VITALS (10 sets, daily range): BP systolic 100–173; BP diastolic 63–85; PULSE 66–91; RESP 18–22; O2SAT 94–98
[2016-09-30] MEDS: Heparin 5,000 Unit/mL Inj SUBQ SCH ×3 (00:30→17:31)
[2016-09-30] MEDS: Sodium Chloride LOK Flush 10 mL Syringe IVFLUSH SCH ×3 (01:23→17:31)
--- NOTE | 2016-09-30 04:29 | NUR ---
PT ACTIVITY Pt had been sitting in chair during first few hours of shift. Pt also up and sat in front hallway of [facility] [place]. Pt up independently, steady on feet. Pt has denied any SOB or discomforts. Pts edema has improved significantly per pt. Continue to monitor. Call light in reach. Intentional rounding.
[2016-09-30 05:32] LABS: BASOPHILS % (AUTO) 0.2 % (0-3); EOSINOPHILS % (AUTO) 2.8 % (0-5); MONOCYTES % (AUTO) 13.2 % (4-12); Mean Corpuscular Hemoglobin 30.4 pg (27.0-35.0); Mean Corpuscular Volume 92.1 fL (81-100); NEUTROPHILS % (AUTO) 61.3 % (40-74); Platelet Count 182 bil/L (150-400)
[2016-09-30 06:30] LABS: Magnesium 2.1 mg/dL (1.6-2.6)
--- NOTE | 2016-09-30 11:52 | NUR ---
Social Work - Readiness for Discharge Data: Pt is on day 2 of hospitalization for peripheral edema, GLF, AFIB. EMR reviewed. Per morning rounds pt is likely to discharge tomorrow and is up and independent in room. Patient has a FWW that he use sometimes. Patient states that he will catch a taxi home at discharge. Patient does not have any discharge needs at this time. No further needs assessed at this time. SW will continue to follow. Assessment: Pt who is independent at baseline. Plan: Patient will likely discharge home via self-pay taxi no needs. SW will continue to follow. KRYSTIAN Encarnacion
--- NOTE | 2016-09-30 17:37 | NUR ---
Ready for discharge Pt appears happy, states to have had the best sleep last night than he's had in many months. Ambulated in hallway independently. Denies pain.
--- NOTE | 2016-09-30 22:14 | PCM.PNMED ---
Subjective Date of Service Sep 30, 2016 Subjective Patient is beginning to feel a bit better. He states that he slept better last night and he has had a very long time. He has no other new complaints. Exam Vital Signs Vital Sign - Last Date Time Temp Pulse Resp B/P Pulse Ox O2 Delivery O2 Flow Rate FiO2 09/30/16 20:55 36.7 71 18 173/83 96 Room Air Intake and Output 09/29/16 09/29/16 09/30/16 Cumulative From/Thru 15:00 23:00 07:00 09/27/16 21:54 - 09/30/16 06:52 Intake Total 873 ml 200 ml 2443 ml Output Total 501 ml 150 ml 4012 ml Balance 372 ml 50 ml -1569 ml Intake Oral 873 ml 200 ml 2443 ml Output Urine Total 500 ml 150 ml 4011 ml Urine/Stool Mix 1 ml 1 ml # Voids 1 1 # Bowel Movements 1 0 1 Exam General: Patient is sitting up in a bedside chair in no apparent distress. HEENT: Head is atraumatic and normocephalic with normal male pattern baldness. Eyes: Pupils are equally round and reactive to light and accommodation. Extraocular muscles are intact. Sclera are white, anicteric. Subconjunctival mucosa is pink. Ears and nose are unremarkable. Oropharynx: There is no mucosal lesions, there is no thrush, there is no pharyngitis. Neck: Is supple, there are no nodes, or masses or tenderness. Chest: Is clear to auscultation and percussion. There are no rales, rhonchi, wheezes or rubs. Heart: Rate, rhythm is regular. There is no murmur, rub or gallop. Abdomen: Good bowel sounds are present. Abdomen is soft, nontender, no organomegaly or masses were appreciated. Extremities: Are symmetrical and well perfused. There is minimal to no edema today, there is no cellulitis, no rash. There is wrinkling of the skin on the right upper extremities and both lower extremities indicating improvement in edema. Neurologic: There are no focal neurological deficits. Cranial nerves II through XII are intact. There are no sensory or motor deficits. Psychiatric: Patients mood is calm and shows no sign of agitation. Genital: Deferred Rectal: Deferred Lab and Diagnostics Result Diagram: 09/30/16 0500 09/30/16 0500 X-Rays, CTs and MRIs X-Ray Chest Interpretation IMPRESSION: no acute findings View: Portable Interpretation / Wet Read by: Génesis farris ED physician CT Abd / Pelvis Interpretation Impression: no acute findings Study type: Abdominal CT no contrast Interpretation / Wet Read by: Génesis farris ED physician Cardiac Echo Impressions Echocardiogram Report Name: ERIK MARY EStudy Date: 09/28/2016 Height: 66 in Hospital Exam Location: [facility] Weight: 200 lb Gender: Male BSA: 2. 0 m2 : 1940 Age: 76 yrs BP: 152 /92 mmHg Reason For Study: SOB Ordering Physician: HOSPITALIST [facility] Performed By: Rachel Stephens Referring Physician: Dr. Carlitos Porter Interpretation Summary The patient was in atrial fibrillation with controlled ventricular rate during the exam. The left ventricle is normal in size, wall thickness, and systolic function without any focal wall motion abnormalities. The ejection fraction is estimated to be 60-65%. Diastolic function could not be accurately assessed due to atrial fibrillation. The right ventricle is normal in size, thickness and function. The right ventricular systolic pressure is estimated at 34 mmHg assuming a right atrial pressure of 3 mm Hg. The left atrium is severely dilated. The right atrium is mildly dilated. There is no significant valvular heart disease. The ascending aorta is mildly enlarged. Assessment & Plan Erik Mary is a 75 year old male with Paroxysmal Atrial Fibrillation, Stroke and Hypertension who presents to [facility] emergency department due to bilateral swelling in his ankles and feet and dyspnea on exertion. 1. Dyspnea with bilateral leg edema due to Acute Congestive Heart Failure. Suspect secondary to diastolic dysfunction Present on admission Dyspnea on exertion with leg edema. No prior confirmed diagnosis of congestive heart failure but does have risk factors - Continue diuretics with Lasix 40 mg IV bid pain decreased to 40 by mouth daily in a.m. - Continue Lisinopril 5 mg daily with Nitroglycerine - Initiate beta tasha once stable prior to discharge. Will start carvedilol 3.125 mg by mouth twice a day in a.m. - CHF clinic referral - We have discussed low sodium diet and daily weight at home 2. Paroxysmal Atrial Fibrillation Rate controlled currently. [id number] score 6 (Stroke risk 9.8%/yr) Anticoagulations indicated - We will continue to monitor on telemetry - The patient should be on anticoagulations. We will discuss this with patient. - Patient started on carvedilol today 3. Hypertension. Chronic Uncontrolled due to Congestive heart failure - Propranolol has been stopped - We will continue Lisinopril 5 mg daily - We will add carvedilol 3.125 mg by mouth twice a day in a.m. 4. Benign Prostatic Hypertrophy - We will continue Flomax 0.4 mg daily - Acetaminophen as needed for mild pain/fever/headache - Bowel regimen as needed - Antiemetic as needed Disposition: Patient will need to be hospitalized for another 24 hours for the treatment of the above conditions. . Pain Evaluation: Adequate Pain Control GI Prophylaxis: Not indicated VTE Prophylaxis: Sub-Q Heparin (Unfractionated) VTE Mechanical Devices: Intermittant Pneumatic CD Resuscitation Status: CPR: Attempt Resuscitation Ashok Burciaga MD Sep 30, 2016 22:14
[2016-10-01] VITALS (7 sets, daily range): BP systolic 107–144; BP diastolic 66–88; PULSE 72–89; RESP 16–18; O2SAT 94–97
[2016-10-01] MEDS: Heparin 5,000 Unit/mL Inj SUBQ SCH ×2 (00:30→09:09)
[2016-10-01] MEDS: Sodium Chloride LOK Flush 10 mL Syringe IVFLUSH SCH ×2 (00:35→09:06)
--- NOTE | 2016-10-01 05:57 | NUR ---
GENERALIZED ACHES Pt awoke during night, groaning, restless. RN went into pts room, pt stating generalized body aches, which he gets at home. Pt given prn tylenol, which pt stated, "it helped a bit." Pt denies taking any medications at home to help with his aches, "I get sore at home, but don't take anything." Pt asked if position change and getting up and walking helps. Pt states, "yes", then ambulated out to [facility] front hallway. Continue to monitor. Call light in reach. Intentional rounding.
[2016-10-01 06:57] LABS: BASOPHILS % (AUTO) 0.2 % (0-3); EOSINOPHILS % (AUTO) 2.7 % (0-5); MONOCYTES % (AUTO) 14.6 % (4-12); Mean Corpuscular Hemoglobin 30.9 pg (27.0-35.0); NEUTROPHILS % (AUTO) 52.9 % (40-74); Platelet Count 201 bil/L (150-400)
[2016-10-01 08:25] LABS: Magnesium 2.3 mg/dL (1.6-2.6)
--- NOTE | 2016-10-01 14:13 | PCM.DIMED ---
Discharge Instructions Date of Service Oct 01, 2016 Dates of Hospitalization Sep 28, 2016 at 00:45 Discharge Diagnosis Discharge Diagnosis Atrial Fibrillation with CHF Diet Heart Healthy Activity No restrictions (The patient may return to his usual activities gradually as tolerated.) Call your provider Fever or Chills, Shortness of breath, Bleeding, Chest pain, Vomitting, Excessive diarrhea, Weakness (unilateral) Patient Instructions Follow-up Provider: Diego Owusu MD Follow-up with PCP in: 1 week Provider: Artemio Gaston MD Follow-up in: 1 week (For nephrology consult) Mid-level Provider (F9): Iain Dillard MD Follow-up with Mid-level in: 2 weeks Ashok Burciaga MD Oct 01, 2016 14:13
[2016-10-01] MEDS ORDERED: FURO40TA4 PO (14:18)
[2016-10-01] MEDS ORDERED: POLY17PO6 PO (14:18)
[2016-10-01] MEDS ORDERED: NITR0.4T SL (14:18)
[2016-10-01] MEDS ORDERED: CARV3.122 PO (14:18)
[2016-10-01] MEDS ORDERED: Senna/Docusate Sodium PO (14:18)
[2016-10-01] MEDS ORDERED: LISI-571 PO (14:18)
--- NOTE | 2016-10-01 14:49 | NUR ---
Social Work - Discharge Data: Pt is on day 3 of hospitalization for peripheral edema, GLF, AFIB. EMR reviewed. Per morning rounds pt to discharge today and is up and independent in room. Patient has a FWW that he use sometimes. Patient states that he will catch a taxi home at discharge. Patient does not have any discharge needs at this time. No further needs assessed at this time. Assessment: Pt who is independent at baseline. Plan: Patient will likely discharge home via self-pay taxi no needs. KRYSTIAN Encarnacion
--- NOTE | 2016-10-01 16:58 | NUR ---
Discharge Pt d/c home with friend via at 1615. Pt denied pain. IV d/c. VSS. All personal belongings left with pt. Home meds p/u from Rx. Discharge info discussed with pt, while friend present, per pts request. Focused teaching made on CHF. questions answered.
--- NOTE | 2016-10-02 00:02 | PCM.DC.MED ---
Discharge Summary Date of Service Oct 01, 2016 Dates of Hospitalization Date of Hospital Admission Sep 28, 2016 at 00:45 Date of Discharge: Oct 01, 2016 Providers: Admitting Physician: Michael Maher MD Primary Care Physician: Diego Owusu MD Attending Physician: Michael Maher MD Diagnosis at Time of Discharge Diagnosis at Time of Discharge Atrial Fibrillation with CHF Procedures XRay, CTs & MRIs X-Ray Chest Interpretation IMPRESSION: no acute findings View: Portable Interpretation / Wet Read by: Génesis read ED physician CT Abd / Pelvis Interpretation Impression: no acute findings Study type: Abdominal CT no contrast Interpretation / Wet Read by: Génesis farris ED physician Cardiac Echo Impression Echocardiogram Report Name: ERIK ERES EStudy Date: 09/28/2016 Height: 66 in Hospital Exam Location: [facility] Weight: 200 lb Gender: Male BSA: 2. 0 m2 : 1940 Age: 76 yrs BP: 152 /92 mmHg Reason For Study: SOB Ordering Physician: HOSPITALIST [facility] Performed By: Rachel Stephens Referring Physician: Dr. Carlitos Porter Interpretation Summary The patient was in atrial fibrillation with controlled ventricular rate during the exam. The left ventricle is normal in size, wall thickness, and systolic function without any focal wall motion abnormalities. The ejection fraction is estimated to be 60-65%. Diastolic function could not be accurately assessed due to atrial fibrillation. The right ventricle is normal in size, thickness and function. The right ventricular systolic pressure is estimated at 34 mmHg assuming a right atrial pressure of 3 mm Hg. The left atrium is severely dilated. The right atrium is mildly dilated. There is no significant valvular heart disease. The ascending aorta is mildly enlarged. Brief History Erik Rees is a 75 year old male with Paroxysmal Atrial Fibrillation, Stroke and Hypertension who presents to [facility] emergency department due to bilateral swelling in his ankles and feet and dyspnea on exertion. Duration for the past 3 to 4 weeks. He has experienced mild swelling previously , but never this severe. Today, he has noticed stiffness and swelling in his right arm as well. He denied any orthopnea or paroxysmal nocturnal dyspnea. He is compliant with his medications including Propranolol and Statin. He denies eating alot of salt. He denies any chest pain or productive cough He was hospitalized for pneumonia a year ago. His son was diagnosed with pulmonary embolism. He lives alone independently able to perform activities of daily living. Previous episode of atrial fibrillation but not sustained. Case discussed with Dr Davis, Ct chest showed no Pulmonary embolism is Lasix was given and the patient was admitted to the hospital service for further evaluation and treatment. Hospital Course Erik Rees is a 75 year old male with Paroxysmal Atrial Fibrillation, Stroke and Hypertension who presents to [facility] emergency department due to bilateral swelling in his ankles and feet and dyspnea on exertion. 1. Dyspnea with bilateral leg edema due to Acute Congestive Heart Failure. Suspect secondary to diastolic dysfunction Present on admission Dyspnea on exertion with leg edema. No prior confirmed diagnosis of congestive heart failure but does have risk factors - She received diuretics with Lasix 40 mg IV bid which was then decreased to 40 by mouth daily - Continue Lisinopril 5 mg daily - We Initiated beta tasha once stable prior to discharge with Carvedilol 3.125 mg by mouth twice a day in a.m. - CHF clinic referral - We have discussed low sodium diet and daily weight at home 2. Paroxysmal Atrial Fibrillation Rate controlled currently. [id number] score 6 (Stroke risk 9.8%/yr) Anticoagulations indicated. However, patient had a [employer] bleed in the past due to an AV malformation was told never to take any anticoagulants including aspirin - We will continue to monitor on telemetry - Patient started on carvedilol 3.125 mg by mouth twice a day and is tolerating well. 3. Hypertension. Chronic Uncontrolled due to Congestive heart failure - Propranolol has been stopped - We will continue Lisinopril 5 mg daily - Patient was started carvedilol 3.125 mg by mouth twice a day in a.m. 4. Benign Prostatic Hypertrophy - We will continue Flomax 0.4 mg daily - Acetaminophen as needed for mild pain/fever/headache - Bowel regimen as needed - Antiemetic as needed Disposition: Patient is to be discharged home today. . Exam Vital Signs (Last) Date Time Temp Pulse Resp B/P Pulse Ox O2 Delivery O2 Flow Rate FiO2 10/01/16 15:00 36.6 76 18 144/82 97 Room Air Exam General: Patient is sitting up in a bedside chair in no apparent distress. HEENT: Head is atraumatic and normocephalic with normal male pattern baldness. Eyes: Pupils are equally round and reactive to light and accommodation. Extraocular muscles are intact. Sclera are white, anicteric. Subconjunctival mucosa is pink. Ears and nose are unremarkable. Oropharynx: There is no mucosal lesions, there is no thrush, there is no pharyngitis. Neck: Is supple, there are no nodes, or masses or tenderness. Chest: Is clear to auscultation and percussion. There are no rales, rhonchi, wheezes or rubs. Heart: Rate, rhythm is regular. There is no murmur, rub or gallop. Abdomen: Good bowel sounds are present. Abdomen is soft, nontender, no organomegaly or masses were appreciated. Extremities: Are symmetrical and well perfused. There is minimal to no edema today, there is no cellulitis, no rash. There is wrinkling of the skin on the right upper extremities and both lower extremities indicating improvement in edema. Neurologic: There are no focal neurological deficits. Cranial nerves II through XII are intact. There are no sensory or motor deficits. Psychiatric: Patients mood is calm and shows no sign of agitation. Genital: Deferred Rectal: Deferred Test 09/27/16 22:30 09/27/16 22:45 09/28/16 01:00 09/28/16 08:42 Prothrombin Time 10.2sec (8.1-12.5) Prothromb Time International Ratio 0.95ratio Activated Partial Thromboplast Time 27.0sec (22.8-33.0) D-Dimer 0.70mg/L FEU (<0.50) Thyroid Stimulating Hormone (TSH) 5.300uIU/mL (0.450-4.500) Urine Color Straw (YELLOW) Urine Appearance Clear (CLEAR,HAZY) Urine pH 7.0 (5.0-8.0) Urine Specific [place] 1.010 (1.003-1.035) Urine Protein Negativemg/dL (NEG,TRACE) Urine Glucose (UA) Negativemg/dL (NEGATIVE) Urine Ketones Negativemg/dL (NEGATIVE) Urine Occult Blood Negative (NEGATIVE) Urine Nitrite Negative (NEGATIVE) Urine Bilirubin Negative (NEGATIVE) Urine Urobilinogen Normalmg/dL (NORMAL) Urine Leukocyte Esterase Negative (NEGATIVE) Urine RBC 0-2/hpf (0-2) Urine WBC 0-5/hpf (0-5) Urine Epithelial Cells Occasional/hpf (NONE-MOD) Urine Crystals None seen (NONE SEEN) Urine Bacteria None/hpf (NONE-FEW) Urine Hyaline Casts None/lpf (NONE) Urine Granular Casts None seen (NONE SEEN) Urine Waxy Casts None seen (NONE SEEN) Urine Red Blood Cell Casts None seen (NONE SEEN) Urine White Blood Cell Casts None seen (NONE SEEN) Urine Mucus None seen (None Seen) Urine Trichomonas None seen (NONE SEEN) Urine Yeast None (NONE SEEN) Urine Culture Reflexed Not indicated Hold Urine Received (Received) Free Thyroxine 1.21ng/dL (0.82-1.77) Test 09/29/16 00:37 09/29/16 05:45 10/01/16 06:00 Total Creatine Kinase 87U/L (21-232) Creatine Kinase MB 1.0ng/mL (0.0-10.4) Creatine Kinase MB % % (0.0-5.0) Troponin T 0.010ug/L (0.0-0.011) Phosphorus Level 5.2mg/dL (2.5-4.9) Triglycerides Level 171mg/dL (0-149) Cholesterol Level 123mg/dL (100-199) LDL Cholesterol, Calculated 53.800mg/dL (0-99) VLDL Cholesterol 34.200mg/dL HDL Cholesterol 35mg/dL (>39) Cholesterol/HDL Ratio 3.51 (0.0-4.4) White Blood Count 8.5th/mm3 (3.8-10.1) Red Blood Count 5.15mil/mm3 (4.40-5.80) Hemoglobin 15.9g/dL (13.8-17.2) Hematocrit 48.4% (41.0-50.0) Mean Corpuscular Volume 94.0fL (81-100) Mean Corpuscular Hemoglobin 30.9pg (27.0-35.0) Mean Corpuscular Hemoglobin Concent 32.9% (32.0-37.0) Red Cell Distribution Width 14.0% (12.3-15.4) Platelet Count 201bil/L (150-400) Neutrophils (%) (Auto) 52.9% (40-74) Lymphocytes (%) (Auto) 29.0% (14-46) Monocytes (%) (Auto) 14.6% (4-12) Eosinophils (%) (Auto) 2.7% (0-5) Basophils (%) (Auto) 0.2% (0-3) Sodium Level 143mEq/L (134-144) Potassium Level 4.5mEq/L (3.5-5.2) Chloride Level 101mEq/L (97-108) Carbon Dioxide Level 23mmol/L (18-29) Blood Urea Nitrogen 38mg/dL (8-27) Creatinine 1.54mg/dL (0.76-1.27) Estimat Glomerular Filtration Rate 47mL/min (>59) Glucose Level 101mg/dL (60-99) Calcium Level 9.2mg/dL (8.5-10.1) Magnesium Level 2.3mg/dL (1.6-2.6) Total Bilirubin 0.7mg/dL (0.0-1.2) Aspartate Amino Transf (AST/SGOT) 20U/L (0-50) Alanine Aminotransferase (ALT/SGPT) 19U/L (0-44) Alkaline Phosphatase 84U/L (25-160) Pro-B-Type Natriuretic Peptide 813.9pg/mL (0-486) Total Protein 6.9g/dL (6.4-8.4) Albumin 4.2g/dL (3.4-5.0) Discharge Medications Discharge Medications Atorvastatin Calcium (Atorvastatin Calcium) 40 Mg Tablet 40 MG PO HS Prescribed by: NATALIA POLO MD Carvedilol (Carvedilol) 3.125 Mg Tablet 3.125 MG PO BIDWM Prescribed by: JEVON BURCIAGA MD Furosemide (Furosemide) 40 Mg Tablet 40 MG PO DAILY Prescribed by: JEVON BURCIAGA MD Lisinopril (Lisinopril) 5 Mg Tablet 5 MG PO DAILY Prescribed by: JEVON BURCIAGA MD Tamsulosin (Flomax) 0.4 Mg Capsule 0.4 MG PO DAILY Prescribed by: NATALIA POLO MD Trazodone (Trazodone) 50 Mg Tablet 100 MG PO HS (Reported) As needed ([Senna/Docusate Sodium]) 1 TABLET TABLET 2 TABLET PO BID PRN PRN For Constipation Prescribed by: JEVON BURCIAGA MD Nitroglycerin SL (Nitrostat) 0.4 Mg Tab.subl 0.4 MG SL Q5MIN PRN PRN For Chest Pain Prescribed by: JEVON BURCIAGA MD Polyethylene Glycol 3350 (Miralax) 17 Gm Powd.pack 17 GM PO DAILY PRN PRN For Constipation Prescribed by: JEVON BURCIAGA MD Followup Plan Disposition: Patient is being discharged home today. Discharge Diet: Heart Healthy Discharge Activity: No restrictions (The patient may return to his usual activities gradually as tolerated.) Follow-up Provider: Diego Owusu MD Follow-up with PCP in: 1 week Provider: Artemio Gaston MD Follow-up in: 1 week (For nephrology consult) Mid-level Provider: Iain Dillard MD Follow-up with Mid-level in: 2 weeks Time spent Time spent on discharging this patient was greater than 35 minutes, over half of which was involved in counseling and coordination of care. Ashok Burciaga MD Oct 02, 2016 00:02
--- NOTE | 2016-10-02 18:10 | NUR ---
Follow up phone for CHF patients Date:10/02/16 Time:8568 Information Discussed:Weights, low sodium diet, reportable symptoms to MD. Patient reported he does not have a scale and is "almost blind." His diet consists of meals on wheels. Has follow up appointment with Dr. Owusu on Thursday, will report any increased swelling or shortness of breath to him prn. Questions patient had: Patient had no questions.
== END 2016-10-01 16:22 | disposition home or self-care (01) | DRG 293 ==
LOC: SED 21:52 → MPC 09-28 00:45
PROVIDERS: ADMIT Hospitalist; ATTEND Hospitalist
DX: I50.31 Acute diastolic (congestive) heart failure (principal); I48.0 Paroxysmal atrial fibrillation; F17.220 Nicotine dependence, chewing tobacco, uncomplicated; I10 Essential (primary) hypertension; N40.0 Benign prostatic hyperplasia without lower urinary tract symptoms; R06.00 Dyspnea, unspecified

== ENCOUNTER 2016-10-06 18:37 | Emergency (ER) | payer MEDICARE, OTHER ==
[~2016-10-06] VITALS: Ht 167.6 cm; Wt 90.5 kg
[~2016-10-06 18:37] MED LIST changes: -CALC600T12 PO; +CARV3.122 PO; -FAMO20T PO; -FERR-74 PO; +FURO40TA4 PO; -HYDR-3825 PO; -LEVO750T9 PO; +LISI-571 PO; -LORA0.5T PO; -MAGN400T23 PO; -MELA5TAB14 PO; -NICO1PAT5 TOPICAL; +NITR0.4T SL; +POLY17PO6 PO; -POTA10TA12 PO; -PROP60CA8 PO; +Senna/Docusate Sodium PO; +TRAZ-115 PO; -Thiamine PO
[2016-10-06 18:42] VITALS: BP 151/84; PULSE 88; RESP 18; O2SAT 97
--- NOTE | 2016-10-06 19:11 | DRSVH ---
PROCEDURE: X-RAY CHEST, TWO VIEWS ([id number]) INDICATIONS: SOB TECHNIQUE: 2 views of the chest were acquired. COMPARISON: [facility], CR, XR CHEST 1VW (PORTABLE), 09/27/2016, 22:08. FINDINGS: Surgical changes and devices: None. Lungs and pleura: No pleural effusions or pneumothorax. Lungs are clear. Mediastinum: Mediastinal contours are normal. Heart size is normal. Bones and chest wall: No suspicious bony abnormalities. Soft tissues appear unremarkable. IMPRESSION: No acute process. Dictated by: Shanon Porras M.D. on 10/06/2016 at 19:09 Approved by: Shanon Porras M.D. on 10/06/2016 at 19:09
[2016-10-06 19:25] LABS: BASOPHILS % (AUTO) 0.4 % (0-3); EOSINOPHILS % (AUTO) 3.1 % (0-5); MONOCYTES % (AUTO) 11.5 % (4-12); Mean Corpuscular Hemoglobin 30.8 pg (27.0-35.0); Mean Corpuscular Volume 93.8 fL (81-100); NEUTROPHILS % (AUTO) 59.1 % (40-74); Platelet Count 191 bil/L (150-400)
[2016-10-06 19:54] LABS: TROPONIN T < 0.010 ug/L (0.0-0.011)
[2016-10-06 20:22] VITALS: BP 145/83; PULSE 64; RESP 20; O2SAT 98
--- NOTE | 2016-10-06 20:23 | ED.REPORT ---
HPI-General Illness Date of Service October 06, 2016 ED Provider: Gera Montes MD A 76 year old male with a history of CHF, anxiety, hypertension, atrial fibrillation and multiple other medical concerns presents to the ED due to lower extremity edema. The pt was recently admitted for CHF and discharged on . He seemed to be doing well and was seen by his PCP in follow up at 14: 00 this afternoon. By 16:30, his feet began swelling. His symptoms occurred bilaterally but were more severe in the right foot. When he called the office of his PCP, he was instructed to come to the ED. The pt currently admits to an episode of shortness of breath with diaphoresis but denies chest pain, nausea, or fever. Nursing Notes Stated Complaint: SHORTNESS OF BREATH, FEET AND ANKLE SWELLING Chief Complaint: General Complaint Nursing Notes Reviewed: Yes Allergies: Coded Allergies: No Known Allergies (Verified Allergy, Unknown, 10/06/16) Scheduled Atorvastatin Calcium (Atorvastatin Calcium) 40 Mg Tablet 40 MG PO HS Carvedilol (Carvedilol) 3.125 Mg Tablet 3.125 MG PO BIDWM Furosemide (Furosemide) 40 Mg Tablet 40 MG PO DAILY Lisinopril (Lisinopril) 5 Mg Tablet 5 MG PO DAILY Tamsulosin (Flomax) 0.4 Mg Capsule 0.4 MG PO DAILY Trazodone (Trazodone) 50 Mg Tablet 100 MG PO HS Scheduled PRN ([Senna/Docusate Sodium]) 1 TABLET TABLET 2 TABLET PO BID PRN PRN For Constipation Nitroglycerin SL (Nitrostat) 0.4 Mg Tab.subl 0.4 MG SL Q5MIN PRN PRN For Chest Pain Polyethylene Glycol 3350 (Miralax) 17 Gm Powd.pack 17 GM PO DAILY PRN PRN For Constipation General Time Seen by MD: 19:50 Chief Complaint Other (Lower extremity edema) Hx Obtained From: Patient Arrived By: Walk-in Sudden in Onset?: No Onset Occurred: 1 - 4 hours ago Symptom Duration: Since onset Recent Healthcare: Recent doctor visit, Recent hospitalization Similar Sx Previous: Yes Past Medical History Past Medical History 1. 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 and transferred to [facility] (has not been on any anti-platelet medications since) 2. Peptic ulcer disease. 3. Depression and anxiety. 4. Hypertension. 4. Peripheral vascular disease with right superficial femoral artery stenosis August 2013 by Doppler. 6. Esophageal stricture with need for intermittent dilatation (last dilatation was January 02, [address] Tian ) EGD(January 02, 2014) Esophageal peptic stricture status post dilatation to 11.5 mm. Ulcerative esophagitis. Sliding hiatal hernia. 7. Macular degeneration. 8. Ulcerative esophagitis and peptic stricture 9. Hx of Daily alcohol dependence 10. Hx of clostridium perfringens 11. Atrial fibrillation, not on blood thinner currently Reports: Congestive heart failure, Stroke Past Surgical History 1. Tonsillectomy. 2. Left rotator cuff repair. Family History pulmonary embolism Smoking History Former Smoker Social History Son is POA Alcohol Use: 3-5 per day Drug Use: Denies drug use Other Social History: Smokeless tobacco, Good social support, Lives alone, Ambulatory Status Independent Review of Systems lower extremity edema Full Review of Systems Constitutional: Denies: Fever Respiratory: Reports: Shortness of breath Cardiovascular: Denies: Chest pain GI: Denies: Nausea Skin: Reports Diaphoresis, Denies Rash Complete sys rev & neg: except as marked. Physical Exam Vital Signs Vital Signs Date Time Temp Pulse Resp B/P Pulse Ox O2 Delivery O2 Flow Rate FiO2 10/07/16 00:08 89 16 143/81 97 Room Air 10/06/16 21:40 140/69 10/06/16 20:22 36.5 64 20 145/83 98 Room Air 10/06/16 18:42 36.5 88 18 151/84 97 Room Air Initial VS: Reviewed General/Constitutional: Awake, Alert Head / Eyes: Atraumatic, Normocephalic, PERRL, EOMI ENT: Atraumatic, Airway patent, Mucous membranes moist Neck: Atraumatic, Supple, Full range of motion Respiratory / Chest: Atraumatic, Breath sounds NL, Breath sounds = bilat, No respiratory distress Cardiovascular: Heart rate NL, Regular rhythm, Heart sounds NL Abdomen: Atraumatic, Soft, Non-tender Back: Atraumatic, Full range of motion Upper Extremities Upper Extremity / MS: Atraumatic, Full range of motion Lower Extremity / Pelvis / MS: Atraumatic, Full range of motion Skin: Atraumatic, Color NL, No rash, Warm, Dry Neurologic: Oriented X3, Speech NL, No motor deficits, No sensory deficits Psychiatric: Affect NL, Mood NL Interpretation & Diagnostics Interpretation & Diagnostics: Venous Duplex US: IMPRESSION: No evidence of bilateral lower extremity DVT. Dictated by: Shanon Porras M.D. on 10/06/2016 at 22:04 Approved by: Shanon Porras M.D. on 10/06/2016 at 22:04 Lab Results Interpretation Result Diagram: 10/06/16 1908 10/06/16 1908 Test 10/06/16 19:08 10/06/16 20:58 10/06/16 22:10 White Blood Count 9.4th/mm3 (3.8-10.1) Red Blood Count 4.96mil/mm3 (4.40-5.80) Hemoglobin 15.3g/dL (13.8-17.2) Hematocrit 46.5% (41.0-50.0) Mean Corpuscular Volume 93.8fL (81-100) Mean Corpuscular Hemoglobin 30.8pg (27.0-35.0) Mean Corpuscular Hemoglobin Concent 32.9% (32.0-37.0) Red Cell Distribution Width 13.6% (12.3-15.4) Platelet Count 191bil/L (150-400) Neutrophils (%) (Auto) 59.1% (40-74) Lymphocytes (%) (Auto) 25.6% (14-46) Monocytes (%) (Auto) 11.5% (4-12) Eosinophils (%) (Auto) 3.1% (0-5) Basophils (%) (Auto) 0.4% (0-3) Sodium Level 142mEq/L (134-144) Potassium Level 4.3mEq/L (3.5-5.2) Chloride Level 101mEq/L (97-108) Carbon Dioxide Level 22mmol/L (18-29) Blood Urea Nitrogen 32mg/dL (8-27) Creatinine 1.30mg/dL (0.76-1.27) Estimat Glomerular Filtration Rate 57mL/min (>59) Glucose Level 116mg/dL (60-99) Calcium Level 10.0mg/dL (8.5-10.1) Total Bilirubin 0.5mg/dL (0.0-1.2) Aspartate Amino Transf (AST/SGOT) 24U/L (0-50) Alanine Aminotransferase (ALT/SGPT) 24U/L (0-44) Alkaline Phosphatase 83U/L (25-160) Pro-B-Type Natriuretic Peptide 959.5pg/mL (0-486) Total Protein 7.4g/dL (6.4-8.4) Albumin 4.0g/dL (3.4-5.0) Hold Wang Top Tube Received (Received) Hold Urine Received (Received) Troponin T 0.010ug/L (0.0-0.011) ECG Interpretation ECG Interpretation: atrial fibrillation with a rate of 79 inferior infarct, old no change from previous dated 09/30/2016 Time: 19:10 Interpreted by: ED physician ECG Interpretation: atrial fibrillation with a rate of 63 unchanged from previous Time: 20:15 Interpreted by: ED physician X-Ray Chest Interpretation Chest Xray Interpretation: IMPRESSION: No acute process. Dictated by: Shanon Porras M.D. on 10/06/2016 at 19:09 Approved by: Shanon Porras M.D. on 10/06/2016 at 19:09 Interpretation / Wet Read by: Interpret - Radiologist Re-Eval/Medical Decision Med Decision/Clinical Course Recent CHF admit and LE edema. On exam, edema was not impressive. BNP minimally elevated, lower than at last admit. Evaluation otherwise reassuring. Gave extra 20mg lasix IV, will continue home meds and have him see PMD Source of Hx: Old records Time of Eval: 20:21 Patient Status: Condition improved Re-Evaluation/Progress Note: Pt rechecked, whose shortness of breath has improved. Further treatment is discussed. Time of Eval: 21:50 Patient Status: Condition improved Re-Evaluation/Progress Note: Pt rechecked, who is comfortable. Further laboratory evaluation is discussed. Time of Eval: 23:34 Patient Status: Condition improved Re-Evaluation/Progress Note: Pt rechecked, who is feeling significantly better. The diagnosis and plan for discharge are discussed. The pt understands and agrees with the plan. All questions are addressed at this time. Counseled Regarding: Diagnosis, Lab results, Need for follow-up, When/why to return to ED Discharge & Departure Primary Impression: Peripheral edema Disposition: Home Discharge Condition All VS Reviewed: Yes Condition: Stable Additional Instructions: Emergency Department evaluation included white count examination review of past records ECG chest x-ray and ultrasound of legs. We did not find any serious cause for swelling in legs and feet. An extra dose of furosemide was given and was effective. Be sure to follow a low-salt diet. Continue previous home medications. Follow up with primary care in 2-3 days. Referrals: Diego Owusu MD (PCP) Scribe Attestation Portions of this note were transcribed by Patricia Stanton. I, Dr. Montes personally performed the history, physical exam and medical decision-making; I reviewed and confirmed the accuracy of the information in the transcribed note. Signed by: Alek Good, 10/06/16 and 5106. copies to: Diego Owusu MD, Donald L MD October 06, 2016 20:23 PATRICIA STANTON October 06, 2016 20:32
[2016-10-06] MEDS ORDERED: Furosemide 10 mg/mL 4 mL Inj IVPUSH ONE (20:45)
[2016-10-06 21:40] VITALS: BP 140/69
--- NOTE | 2016-10-06 22:05 | DRSVH ---
PROCEDURE: US VENOUS LEG DUPLEX BILATERAL INDICATIONS: leg swelling TECHNIQUE: Real-time imaging, as well as color and pulse Doppler interrogation, were performed of the deep veins of both legs from the inguinal ligament to the popliteal fossa. COMPARISON: None. FINDINGS: The deep veins are normally compressible, and free of intraluminal thrombus. Color and pu lse Doppler demonstrate normal phasic intravascular flow. There is normal augmentation response to d istal compression maneuver. IMPRESSION: No evidence of bilateral lower extremity DVT. Dictated by: Shanon Porras M.D. on 10/06/2016 at 22:04 Approved by: Shanon Porras M.D. on 10/06/2016 at 22:04
[2016-10-07 00:08] VITALS: BP 143/81; PULSE 89; RESP 16; O2SAT 97
== END 2016-10-07 00:10 | disposition home or self-care (01) ==
LOC: SED 18:37
DX: R60.9 Edema, unspecified (principal); R06.02 Shortness of breath; I50.9 Heart failure, unspecified; I10 Essential (primary) hypertension; I69.398 Other sequelae of cerebral infarction; R20.2 Paresthesia of skin; Z87.891 Personal history of nicotine dependence
CPT/HCPCS: 36415; 71020; 80053; 83880; 84484; 85025; 93005; 93970; 96374; 99285; J1940

== ENCOUNTER 2016-12-17 11:50 | Inpatient (IN) | payer MEDICARE, OTHER ==
[2016-12-17] VITALS (11 sets, daily range): BP systolic 75–150; BP diastolic 53–87; PULSE 59–82; RESP 13–26; O2SAT 95–99
[~2016-12-17] VITALS: Ht 167.6 cm; Wt 83.3 kg
--- NOTE | 2016-12-17 11:59 | ED.REPORT ---
HPI-General Illness Date of Service Dec 17, 2016 ED Provider: Christofer Leo Patient is a a 76 year old male with a hx of CHF, A fib, HTN, and CVA with residual R sided deficits who presents to the ED via EMS complaining of SOB onset yesterday [place]. He felt better after returning home to rest but he could not sleep last night due to his symptoms. Associated symptoms include numbness in his R arm that is slightly greater than baseline but denies any new neurologic deficits. He denies extremity swelling, chest pain , diaphoresis, cough, sputum, fever, or any other symptoms. He has had similar symptoms previously due to his CHF. He does not have a hx of PE. He was on home oxygen until 8 mo ago when he decided he did not want to use it anymore. Nursing Notes Stated Complaint: GENERALIZED WEAKNESS Chief Complaint: Respiratory Complaints Nursing Notes Reviewed: Yes Allergies: Coded Allergies: No Known Allergies (Verified Allergy, Unknown, 12/17/16) Scheduled Atorvastatin Calcium (Atorvastatin Calcium) 40 Mg Tablet 40 MG PO HS Carvedilol (Carvedilol) 3.125 Mg Tablet 3.125 MG PO BIDWM Furosemide (Furosemide) 80 Mg Tab 40 MG PO DAILY Lisinopril (Lisinopril) 5 Mg Tablet 5 MG PO DAILY Sertraline HCl (Sertraline) 50 Mg Tablet 50 MG PO DAILY Tamsulosin (Flomax) 0.4 Mg Capsule 0.4 MG PO DAILY Trazodone (Trazodone) 50 Mg Tablet 50-100 MG PO HS Scheduled PRN Eszopiclone (Eszopiclone) 2 Mg Tablet 1 MG PO PRN Insomnia Ketoconazole (Ketoconazole) 15 Gm Cream..g. 15 GM TP DAILY PRN PRN rash Lorazepam (Lorazepam) 0.5 Mg Tablet 0.5 MG PO q8 hr PRN PRN For Insomnia General Time Seen by MD: 11:59 Chief Complaint Other (SOB) Hx Obtained From: Patient Arrived By: Ambulance Sudden in Onset?: No Onset Occurred: Yesterday Symptom Duration: Since onset Similar Sx Previous: Yes Past Medical History Past Medical History 1. 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 Peptic ulcer disease. 3. Depression and anxiety. 4. Hypertension. 4. Peripheral vascular disease with right superficial femoral artery stenosis August 2013 by Doppler. 6. Esophageal stricture with need for intermittent dilatation (last dilatation was January 02, [address] Tian ) EGD(January 02, 2014) Esophageal peptic stricture status post dilatation to 11.5 mm. Ulcerative esophagitis. Sliding hiatal hernia. 7. Macular degeneration. 8. Ulcerative esophagitis and peptic stricture 9. Hx of Daily alcohol dependence 10. Hx of clostridium perfringens 11. Atrial fibrillation, not on blood thinner currently 12. Seizures Reports: Congestive heart failure, Stroke Past Surgical History 1. Tonsillectomy. 2. Left rotator cuff repair. Reports: Back/neck surgery Family History pulmonary embolism Smoking History Former Smoker Social History Son is POA Alcohol Use: 3-5 per day Drug Use: Denies drug use Other Social History: Smokeless tobacco, Good social support, Lives alone, Ambulatory Status Independent Review of Systems Full Review of Systems Constitutional: Denies: Fever Respiratory: Reports: Shortness of breath, Denies: Non-productive cough, Prod cough, clear Cardiovascular: Denies: Chest pain Musculoskeletal: Denies: Extremity swelling Skin: Denies Diaphoresis Complete sys rev & neg: except as marked. Physical Exam Vital Signs Vital Signs Date Time Temp Pulse Resp B/P Pulse Ox O2 Delivery O2 Flow Rate FiO2 12/17/16 15:02 76 26 97 Room Air 12/17/16 13:48 65 13 123/75 98 Room Air 12/17/16 13:05 68 16 122/78 98 12/17/16 11:55 36.4 66 17 146/80 99 Nasal Cannula 2 Initial VS: Reviewed Head / Eyes: Atraumatic, Normocephalic Skin: Warm, Dry Neurologic: Alert, Oriented, Nonfocal Psychiatric: Mood/affect normal, Behavior normal, Normal thought content General/Constitutional: Awake, Alert Neck: Supple, Full range of motion, No JVD Respiratory / Chest: Atraumatic Diminished at bases Cardiovascular: Heart rate NL Heart Rate / Rhythm: Positive: Irreg irregular rhythm Chronic Afib Lower Extremity / Pelvis / MS: No edema Interpretation & Diagnostics Lab Results Interpretation Result Diagram: 12/17/16 1205 12/17/16 1205 Test 12/17/16 12:05 12/17/16 12:31 12/17/16 12:54 12/17/16 14:40 White Blood Count 10.0th/mm3 (3.8-10.1) Red Blood Count 5.22mil/mm3 (4.40-5.80) Hemoglobin 16.2g/dL (13.8-17.2) Hematocrit 46.9% (41.0-50.0) Mean Corpuscular Volume 89.8fL (81-100) Mean Corpuscular Hemoglobin 31.0pg (27.0-35.0) Mean Corpuscular Hemoglobin Concent 34.5% (32.0-37.0) Red Cell Distribution Width 13.7% (12.3-15.4) Platelet Count 177bil/L (150-400) Neutrophils (%) (Auto) 61.6% (40-74) Lymphocytes (%) (Auto) 26.5% (14-46) Monocytes (%) (Auto) 10.1% (4-12) Eosinophils (%) (Auto) 1.1% (0-5) Basophils (%) (Auto) 0.2% (0-3) D-Dimer 1.52mg/L FEU (<0.50) Sodium Level 139mEq/L (134-144) Potassium Level 3.6mEq/L (3.5-5.2) Chloride Level 97mEq/L (97-108) Carbon Dioxide Level 19mmol/L (18-29) Blood Urea Nitrogen 17mg/dL (8-27) Creatinine 1.11mg/dL (0.76-1.27) Estimat Glomerular Filtration Rate 68mL/min (>59) Glucose Level 109mg/dL (60-99) Calcium Level 9.5mg/dL (8.5-10.1) Total Bilirubin 1.1mg/dL (0.0-1.2) Aspartate Amino Transf (AST/SGOT) 19U/L (0-50) Alanine Aminotransferase (ALT/SGPT) 16U/L (0-44) Alkaline Phosphatase 105U/L (25-160) Pro-B-Type Natriuretic Peptide 1611pg/mL (0-486) Total Protein 7.5g/dL (6.4-8.4) Albumin 4.2g/dL (3.4-5.0) Urine Color Straw (YELLOW) Urine Appearance Hazy (CLEAR,HAZY) Urine pH 8.0 (5.0-8.0) Urine Specific [place] 1.010 (1.003-1.035) Urine Protein Negativemg/dL (NEG,TRACE) Urine Glucose (UA) Negativemg/dL (NEGATIVE) Urine Ketones Negativemg/dL (NEGATIVE) Urine Occult Blood Negative (NEGATIVE) Urine Nitrite Negative (NEGATIVE) Urine Bilirubin Negative (NEGATIVE) Urine Urobilinogen Normalmg/dL (NORMAL) Urine Leukocyte Esterase Negative (NEGATIVE) Urine RBC 0-2/hpf (0-2) Urine WBC 0-5/hpf (0-5) Urine Epithelial Cells Occasional/hpf (NONE-MOD) Urine Crystals None seen (NONE SEEN) Urine Bacteria None/hpf (NONE-FEW) Urine Hyaline Casts None/lpf (NONE) Urine Granular Casts None seen (NONE SEEN) Urine Waxy Casts None seen (NONE SEEN) Urine Red Blood Cell Casts None seen (NONE SEEN) Urine White Blood Cell Casts None seen (NONE SEEN) Urine Mucus None seen (None Seen) Urine Trichomonas None seen (NONE SEEN) Urine Yeast None (NONE SEEN) Urine Culture Reflexed Not indicated Hold Urine Received (Received) Troponin T < 0.010ug/L (0.0-0.011) ECG Interpretation ECG Interpretation: Afib with rate 72 Abnormal R-Wave progression, early transition Inferior infarct, old Time: 12:24 Interpreted by: ED physician X-Ray Chest Interpretation Chest Xray Interpretation: IMPRESSION: No acute process. Dictated by: Shanon Porras M.D. on 12/17/2016 at 12:28 Approved by: Shanon Porras M.D. on 12/17/2016 at 12:29 View: Portable, 1 view Interpretation / Wet Read by: Interpret - ED physician CT Chest Interpretation IMPRESSION: 1. No acute process. No pulmonary embolus. 2. Coronary artery disease. 3. No change in moderate hiatal hernia. Dictated by: Shanon Porras M.D. on 12/17/2016 at 14:22 Approved by: Shanon Porras M.D. on 12/17/2016 at 14:26 Study type: CT pulm angiogram Interpretation / Wet Read by: Interpret - Radiologist Re-Eval/Medical Decision Med Decision/Clinical Course Probable CHF exacerbation. Will be admitted. Unable to walk more than a few feet past the side of the bed due to dyspnea. Time of Eval: 02:45 Re-Evaluation/Progress Note: Rechecked patient. Discussed lab and imaging results. Pt failed road test and could not make it out of the room. Made it 2 feet past the bed before becoming short of breath. Discussed plan for admission. Patient understands and agrees with plan. All questions addressed at this time. Consultation : Referral / Consult Name: SevillaTamiko DO Consulted With: Hospitalist Call Returned at: 15:15 Automatic Log Cut Off [place]yer: Will see patient, Agrees with eval, Agrees with plan, Accepts admit Note: Discussed pt's case. Accepts admit. will send resident Counseled Regarding: Diagnosis, Lab results, Need for admission Discharge & Departure Primary Impression: CHF exacerbation Congestive heart failure type: unspecified congestive heart failure type Qualified Code: I50.9 - Heart failure, unspecified Disposition: ADMITTED TO HOSPITAL Discharge Condition All VS Reviewed: Yes Condition: Stable Referrals: Diego Owusu MD (PCP) Scribe Attestation Portions of this note were transcribed by Rubens Heaton. I, Dr. Leo personally performed the history, physical exam and medical decision-making; I reviewed and confirmed the accuracy of the information in the transcribed note. Signed by: Rubens Heaton 12/17/16, 3204 copies to: Diego Owusu MD, Timothy S DO Dec 17, 2016 11:59 RUBENS HEATON Dec 17, 2016 12:26
[2016-12-17] MEDS ORDERED: FRSM80T PO (12:15)
[2016-12-17] MEDS ORDERED: LORA0.5T PO (12:15)
[2016-12-17] MEDS ORDERED: KTC2C15 TP (12:15)
[2016-12-17] MEDS ORDERED: ESZO2TAB30 PO (12:15)
[2016-12-17] MEDS ORDERED: SERT50TA9 PO (12:15)
[2016-12-17 12:18] LABS: BASOPHILS % (AUTO) 0.2 % (0-3); EOSINOPHILS % (AUTO) 1.1 % (0-5); MONOCYTES % (AUTO) 10.1 % (4-12); Mean Corpuscular Volume 89.8 fL (81-100); NEUTROPHILS % (AUTO) 61.6 % (40-74); Platelet Count 177 bil/L (150-400)
--- NOTE | 2016-12-17 12:31 | DRSVH ---
PROCEDURE: X-RAY CHEST ONE VIEW, PORTABLE ([id number]) INDICATIONS: sob TECHNIQUE: One view of the chest was acquired. COMPARISON: [facility], CR, XR CHEST 2VW, 10/06/2016, 18:57. [facility], CR, XR CHEST 1VW (PORTABLE), 09/27/2016, 22:08. [facility], CR, XR CHEST 1VW (PORTABLE), 12/06, 17:28. [facility], CR, XR CHEST 1VW (PORTABLE), 10/23/2015, 12:09. FINDINGS: Surgical changes and devices: None. Lungs and pleura: No pleural effusions or pneumothorax. Lungs are clear. Mediastinum: Mediastinal contours appear normal. Heart size is normal. Bones and chest wall: No suspicious bony lesions. Overlying soft tissues appear unremarkable. IMPRESSION: No acute process. Dictated by: Shanon Porras M.D. on 12/17/2016 at 12:28 Approved by: Shanon Porras M.D. on 12/17/2016 at 12:29
[2016-12-17 12:38] LABS: TROPONIN T 0.01 ug/L (0.0-0.011)
[2016-12-17 12:55] LABS: APPEARANCE,URINE HAZY (CLEAR,HAZY); COLOR,URINE STRAW (YELLOW); OCCULT BLOOD,URINE NEGATIVE (NEGATIVE); UROBILINOGEN,URINE NORMAL (NORMAL)
[2016-12-17] MEDS ORDERED: Furosemide 10 mg/mL 4 mL Inj IVPUSH ONE (14:25)
--- NOTE | 2016-12-17 14:28 | DRSVH ---
PROCEDURE: CT ANGIO CHEST PULMONARY EMBOLISM ([id number]) INDICATIONS: dyspnea, elevated dimer TECHNIQUE: After the administration of intravenous contrast, 2 mm thick sections acquired from the pulmonary api naveen to the posterior costophrenic angles. 3-dimensional maximum intensity projection (MIP) coronal a nd sagittal reformats were then acquired through the thorax. For radiation dose reduction, the follo wing was used: automated exposure control, adjustment of mA and/or kV according to patient size. COMPARISON: [facility], CT, CT ANGIO CHEST PE, 09/27/2016, 23:42. [facility] , CT, CHEST ANGIO-PE, 11/16/2013, 11:47. FINDINGS: Image quality: Excellent. Pulmonary arteries: Pulmonary arteries are normal in size, and demonstrate no intraluminal filling d efects to suggest central pulmonary embolism. Lungs and pleura: No evidence of pneumonia, nor edema. Mild bibasilar interstitial pulmonary opacity is present, as before. There is mild emphysema with apical predominance, as before. No pleural effusi ons or pneumothorax. Central and peripheral airways are patent. Mediastinum: Heart size is enlarged, without pericardial effusion. There is calcification of the cor onary vasculature. No mediastinal or hilar adenopathy. Thoracic aorta is normal in caliber and enhan cement. Esophagus is normal in caliber. There is no change in the moderate hiatal hernia. Bones and chest wall: Chronic right lateral 6th, 7th, 8th, 9th, and 10th rib fractures are present. No suspicious bony lesions. Ribs and thoracic spine appear intact throughout. Thyroid gland is with in normal limits as visualized. No axillary or supraclavicular adenopathy. Abdomen: Visualized upper abdominal solid organs appear normal in the early arterial phase of enhanc ement. IMPRESSION: 1. No acute process. No pulmonary embolus. 2. Coronary artery disease. 3. No change in moderate hiatal hernia. Dictated by: Shanon Porras M.D. on 12/17/2016 at 14:22 Approved by: Shanon Porras M.D. on 12/17/2016 at 14:26
[2016-12-17] MEDS ORDERED: Ondansetron 2 mg/mL 2 mL Inj IVPUSH PRN ×2 (15:40→19:40)
[2016-12-17] MEDS ORDERED: Alum-Mag Hydrox-Simeth 30 mL Suspension PO PRN ×2 (15:40→19:40)
--- NOTE | 2016-12-17 16:48 | NUR ---
Admit MPC from ED A&O pt arrived to unit via stretcher at 1615. Pt denies pain. VSS. IV in LAC patent. Pt placed on tele-afib 60s. Pt oriented to room and facility. Denies having questions. Up to urinal with FWW and SBA d/t feeling weak and unsteady on feet. Bed in low position, upper rails up, call light in reach. Will continue to monitor. Addendum: 12/17/16 at 1813 by AKANKSHA SANCHEZ RN Pts son (Joshua) in to visit. States pt [place] in [place] near [place] and has dinner at [place] daily. Otherwise gets meals on wheels delivered home. Pt also states to have had diarrhea for 2 weeks, having 2-3 BMs daily. At baseline, ambulates with FWW, with resting stops as needed.
[2016-12-17] MEDS ORDERED: Polyethylene Glycol (PEG) 17 Gm Powder PO PRN (19:40)
[2016-12-17] MEDS ORDERED: Senna-Docusate 8.6-50 mg Tablet PO PRN (19:40)
[2016-12-17] MEDS ORDERED: LORazepam 0.5 mg Tablet PO ONE (20:05)
[2016-12-17] MEDS ORDERED: Furosemide 10 mg/mL 4 mL Inj IVPUSH SCH (20:30)
--- NOTE | 2016-12-17 21:03 | PCM.HPMED ---
Subjective Date of Service Dec 17, 2016 Primary Provider: Admitting Physician: Ricky Dumont Primary Care Physician: Diego Owusu MD Attending Physician: Ricky Dumont Chief Complaint: Shortness of breath History of Present Illness: Erik Mary is a 76-year-old man with past medical history significant for diastolic heart failure, paroxysmal atrial fibrillation, hypertension, CVA with right-sided deficit who presented to the [facility] emergency department today due to shortness of breath that started yesterday. Patient has been admitted multiple other times for shortness of breath due to diastolic heart failure exacerbation. He states that this feels quite similar to that. He does also complain of numbness in his right arm which is slightly worsened than his baseline numbness. He denies any slurred speech, confusion, unilateral weakness. Patient on my exam is quite anxious and he does notify me that he takes lorazepam 3 times a day for anxiety and has not been able to do so today due to his visit to the emergency department and subsequent hospitalization. The patient denies any chest pain, chest pressure, chills, fever, worsening lower extremity edema. Patient denies any orthopnea or paroxysmal nocturnal dyspnea. In the emergency department patient's vital signs were stable. He was given 40 mg of IV Lasix as well as some Tylenol. Review of Systems: A comprehensive review of systems was conducted with the patient and found to be negative except as above in the History of Present Illness. Allergies Coded Allergies: No Known Allergies (Verified Allergy, Unknown, 12/17/16) Home Medications Scheduled Atorvastatin Calcium (Atorvastatin Calcium) 40 Mg Tablet 40 MG PO HS Carvedilol (Carvedilol) 3.125 Mg Tablet 3.125 MG PO BIDWM Furosemide (Furosemide) 80 Mg Tab 40 MG PO DAILY Lisinopril (Lisinopril) 5 Mg Tablet 5 MG PO DAILY Sertraline HCl (Sertraline) 50 Mg Tablet 50 MG PO DAILY Tamsulosin (Flomax) 0.4 Mg Capsule 0.4 MG PO DAILY Trazodone (Trazodone) 50 Mg Tablet 50-100 MG PO HS Scheduled PRN Eszopiclone (Eszopiclone) 2 Mg Tablet 1 MG PO PRN Insomnia Ketoconazole (Ketoconazole) 15 Gm Cream..g. 15 GM TP DAILY PRN PRN rash Lorazepam (Lorazepam) 0.5 Mg Tablet 0.5 MG PO q8 hr PRN PRN For Insomnia PMH Hypertension Sick sinus syndrome Cerebral cavernous malformation. 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 Tian ) EGD(January 02, 2014) : Esophageal peptic stricture status post dilatation to 11.5 mm. Ulcerative esophagitis. Sliding hiatal hernia Macular degeneration Ulcerative esophagitis and peptic stricture Nodular prostate/BPH without obstruction Surgical History Rotator cuff repair Family History Denies FHx of diabetes, colon cancer, lung cancer Son diagnosed with Pulmonary embolism Social History Hx Alcohol Use: Yes (little) Hx Substance Use: No Hx Tobacco Use: Yes (chew 1 can every 3-4 days; quit smoking x30 years ago) Smoking Status: Former Smoker Exam Vital Signs Vital Sign - Last Date Time Temp Pulse Resp B/P Pulse Ox O2 Delivery O2 Flow Rate FiO2 12/17/16 17:35 36.7 70 18 150/87 98 Room Air 12/17/16 11:55 2 Exam General: In mild acute distress, well-developed, well-nourished, appropriately interactive HEENT: Normocephalic, atraumatic. External ears without defect. Pupils equal, round, and reactive to light and accommodation. Anicteric sclerae, moist conjunctivae, and no lid lag. Oropharynx free of erythema and cobble stoning with moist mucosa. Neck: Supple with full range of motion. No jugular venous distension. No lymphadenopathy or thyromegaly. Cardiovascular: Regular rate and irregular rhythm with no murmurs, rubs, or gallops appreciated Pulmonary: Bibasilar crackles appreciated. Normal respiratory effort with no use of accessory muscles. Abdomen: Bowel tones present. Obese. Soft, nontender, nondistended. No hepatosplenomegaly or masses appreciated. Extremities: No clubbing, cyanosis, edema, or lymphadenopathy appreciated. Skin: Normal temperature, turgor, and texture; no rash, ulcers, or subcutaneous nodules appreciated. Neurological: Cranial nerves grossly intact. Residual right arm weakness from prior CVA. No known gait impairment. Psychiatric: Very anxious. Alert and oriented to person, place, and time. Lab and Diagnostics Result Diagram: 12/17/16 1205 12/17/16 1205 X-Rays, CTs and MRIs X-RAY CHEST ONE VIEW, PORTABLE IMPRESSION: No acute process. Dictated by: Shanon Porras M.D. on 12/17/2016 at 12:28 CT ANGIO CHEST PULMONARY EMBOLISM IMPRESSION: 1. No acute process. No pulmonary embolus. 2. Coronary artery disease. 3. No change in moderate hiatal hernia. Dictated by: Shanon Porras M.D. on 12/17/2016 at 14:22 Assessment & Plan Erik Mary is a 76-year-old man with past medical history significant for diastolic heart failure, paroxysmal atrial fibrillation, hypertension, CVA with right-sided deficit who presented to the [facility] emergency department today due to shortness of breath that started yesterday. Dyspnea due to acute on chronic diastolic congestive heart failure. Present on admission, active. - Prior ECHOs have been difficult studies and unable to evaluate diastolic parameters however it is presumed the patient has diastolic CHF. - diuretics with Lasix 40 mg IV bid - Lisinopril 5 mg daily with Nitroglycerine, continue carvedilol - CHF clinic referral - low sodium diet and daily weight at home Chronic issues, present on admission: Paroxysmal Atrial Fibrillation - Rate controlled currently. [id number] score 6. - monitor on telemetry - patient should be on anticoagulations, but risk may outweigh benefit. Will need to discussed prior to discharge. Hypertension - Continuing Lisinopril 5 mg daily Benign Prostatic Hypertrophy - continuing Flomax 0.4 mg daily Anxiety -Patient states he take lorazepam TID -Continue lorazepam - Acetaminophen as needed for mild pain/fever/headache - Bowel regimen as needed - Antiemetic as needed CODE STATUS: FULL CODE Patient is admitted under inpatient status with expected length of stay greater than 2 midnights due to severity of presenting symptoms, risk of adverse event, and complexity of treatment plan. VTE Mechanical Devices: Venous Foot Pump Attending Statement Pt seen and examined by myself and agree with above plan. Carolina Sanz DO Dec 17, 2016 19:36 Dbe Johnson MD Dec 18, 2016 06:03
[2016-12-17] MEDS: Furosemide 10 mg/mL 4 mL Inj IVPUSH SCH (21:49)
[2016-12-18] VITALS (9 sets, daily range): BP systolic 94–133; BP diastolic 62–72; PULSE 51–81; RESP 18; O2SAT 92–98
[2016-12-18] MEDS: Sodium Chloride LOK Flush 10 mL Syringe IVFLUSH SCH ×3 (00:30→16:44)
[2016-12-18] MEDS: Heparin 5,000 Unit/mL Inj SUBQ SCH ×4 (00:30→18:54)
[2016-12-18] MEDS: Furosemide 10 mg/mL 4 mL Inj IVPUSH SCH (08:00)
[2016-12-18] MEDS: LORazepam 0.5 mg Tablet PO PRN ×2 (10:22→20:55)
--- NOTE | 2016-12-18 11:07 | NUR ---
Held medication Patient had orders for IV Lasix, Carvedilol PO, and Lisinopril PO. Nurse got report from warehouse supervisor 3rd shift nurse that IV Lasix dropped blood pressure significantly. Patient blood pressure this morning was 133/70. IV Lasix administered as ordered, but other blood pressure medications were held until blood pressure could be reassessed. 2 hours later blood pressure was 104/72 and MD was notified. PO Carvedilol was administered per MD and Lisinopril PO was held.
--- NOTE | 2016-12-18 20:55 | PCM.PNMED ---
Subjective Date of Service Dec 18, 2016 Subjective Patient is feeling better. Thinks that he will go home tomorrow Exam Vital Signs Vital Sign - Last Date Time Temp Pulse Resp B/P Pulse Ox O2 Delivery O2 Flow Rate FiO2 12/18/16 07:07 54 12/18/16 07:03 36.9 18 94/63 95 Room Air 12/17/16 11:55 2 Intake and Output 12/17/16 12/17/16 12/18/16 Cumulative From/Thru 15:00 23:00 07:00 12/17/16 11:55 - 12/17/16 19:19 Intake Total 1487 ml 1487 ml Output Total 100 ml 500 ml 600 ml Balance -100 ml 987 ml 887 ml Intake Oral 450 ml 450 ml IV Total 1037 ml 1037 ml Output Urine Total 100 ml 500 ml 600 ml # Voids 1 1 Exam General: well-nourished, appropriately interactive HEENT: Normocephalic, atraumatic. External ears without defect. Pupils equal, round, and reactive to light and accommodation. Anicteric sclerae, moist conjunctivae, and no lid lag. Neck: Supple with full range of motion. No jugular venous distension. No thyromegaly. Cardiovascular: Regular rate and irregular rhythm with no murmurs, rubs, or gallops appreciated Pulmonary: Normal respiratory effort with no use of accessory muscles. Abdomen: Bowel tones present. Obese. Soft, nontender, nondistended. Extremities: No clubbing, cyanosis, edema, or lymphadenopathy appreciated. Skin: Normal temperature, turgor, and texture; no rash, ulcers, or subcutaneous nodules appreciated. Neurological: No focal deficits Psychiatric: Alert and oriented to person, place, and time. IVs and Medications Medications Reviewed: Medications were reviewed in detail Lab and Diagnostics Result Diagram: 12/17/16 1205 12/18/16 0330 X-Rays, CTs and MRIs X-RAY CHEST ONE VIEW, PORTABLE IMPRESSION: No acute process. Dictated by: Shanon Porras M.D. on 12/17/2016 at 12:28 CT ANGIO CHEST PULMONARY EMBOLISM IMPRESSION: 1. No acute process. No pulmonary embolus. 2. Coronary artery disease. 3. No change in moderate hiatal hernia. Dictated by: Shanon Porras M.D. on 12/17/2016 at 14:22 Assessment & Plan Erik Mary is a 76-year-old man with past medical history significant for diastolic heart failure, paroxysmal atrial fibrillation, hypertension, CVA with right-sided deficit who presented to the [facility] emergency department today due to shortness of breath that started yesterday. Dyspnea due to acute on chronic diastolic congestive heart failure. Present on admission, active. - Prior ECHOs have been difficult studies and unable to evaluate diastolic parameters however it is presumed the patient has diastolic CHF. - diuretics with Lasix 40 mg IV bid - Lisinopril 5 mg daily with Nitroglycerine, continue carvedilol - CHF clinic referral - low sodium diet and daily weight - We will stop the Lasix tonight as patient is feeling better --We will get him on increased by mouth Lasix regimen tomorrow a.m. Chronic issues, present on admission: Paroxysmal Atrial Fibrillation - Rate controlled currently. [id number] score 6. - monitor on telemetry - patient should be on anticoagulations, but risk may outweigh benefit. Will need to discussed prior to discharge. --Patient states he will discuss anticoagulation with his PCP, as he has not been anticoagulated for a long time. Hypertension - Continuing Lisinopril 5 mg daily Benign Prostatic Hypertrophy - continuing Flomax 0.4 mg daily Anxiety -Patient states he take lorazepam TID -Continue lorazepam - Acetaminophen as needed for mild pain/fever/headache - Bowel regimen as needed - Antiemetic as needed CODE STATUS: FULL CODE Patient is admitted under inpatient status with expected length of stay greater than 2 midnights due to severity of presenting symptoms, risk of adverse event, and complexity of treatment plan. VTE Mechanical Devices: Venous Foot Pump Time spent 25 min Sarah Keith DO Dec 18, 2016 07:25
[2016-12-19] VITALS (8 sets, daily range): BP systolic 82–159; BP diastolic 53–81; PULSE 50–78; RESP 16–18; O2SAT 93–98
[2016-12-19] MEDS: Sodium Chloride LOK Flush 10 mL Syringe IVFLUSH SCH ×3 (01:23→17:36)
[2016-12-19] MEDS: Heparin 5,000 Unit/mL Inj SUBQ SCH ×2 (04:12→17:36)
--- NOTE | 2016-12-19 04:13 | NUR ---
ACTIVITY Took over care at 2330. Patient sleeping through the night, awoke easily for assessment and vital sign checks. No complaints of pain. Hourly rounding.
--- NOTE | 2016-12-19 04:15 | NUR ---
HEPARIN Per report, pt continuing to refuse heparin as instructed by previous facility. Non-administered morning dose, per pt request.
--- NOTE | 2016-12-19 05:18 | NUR ---
ORTHOSTATIC BP Pt has positive orthostatic BP. Lying 125/72 to sitting 82/57 to standing 91/53. Pt asymptomatic.
[2016-12-19] MEDS ORDERED: Potassium Chloride 20 mEq SR Tablet PO ONE (07:35)
[2016-12-19] MEDS ORDERED: FURO40TA4 PO ×2 (07:38→10:11)
--- NOTE | 2016-12-19 13:12 | NUR ---
NUTRITION EDUCATION Provided pt with education on CHF/Low sodium diet. Pt receives meals on wheels, eats many canned foods. Discussed low sodium varieties, provided pt with educational materials.
--- NOTE | 2016-12-19 13:40 | NUR ---
Evaluation completed. Please go to "Notes" then click on "Assessments and Notes" (bottom left corner of screen). Then select appropriate discipline tab on top of screen.
--- NOTE | 2016-12-19 13:56 | PCM.DIMED ---
Discharge Instructions Date of Service Dec 19, 2016 Dates of Hospitalization Dec 17, 2016 at 16:41 Discharge Diagnosis Discharge Diagnosis Acute on Chronic Diastolic heart failure, paroxysmal atrial fibrillation, hypertension, anxiety Diet Discharge Diet: Low fat, Low Sodium, Heart Healthy Activity Discharge Activity: Home Health Phyical Therapy Call your provider Call your provider for: Fever or Chills, Shortness of breath, Bleeding, Chest pain, Vomitting, Excessive diarrhea, Weakness (unilateral), Other Patient Instructions Patient Instructions Please follow up with physical therapy please avoid quick movements especially while getting up from bed to avoid drop in blood pressure Please stay well hydrated We recommend compression stockings Please discontinue trazodone Follow-up plan Follow-up with PCP in one week regarding insomnia medications. Follow-up cardiology in 1-2 weeks, for heart failure and also to discuss possible anticoagulation for atrial fibrillation PT recommends d/c to home with HHPT 2x/week for 4 weeks to improve his functional strength and mobility. Sarah Keith DO Dec 19, 2016 13:56
--- NOTE | 2016-12-19 13:57 | PCM.DC.MED ---
Discharge Summary Date of Service Dec 19, 2016 Dates of Hospitalization Date of Hospital Admission Dec 17, 2016 at 16:41 Date of Discharge: Dec 19, 2016 Providers: Admitting Physician: Carolina Sanz DO Primary Care Physician: Diego Owusu MD Attending Physician: Sarah Sanders DO Diagnosis at Time of Discharge Diagnosis at Time of Discharge Acute on Chronic Diastolic heart failure, paroxysmal atrial fibrillation, hypertension, anxiety Consultations Physical therapy Procedures XRay, CTs & MRIs X-RAY CHEST ONE VIEW, PORTABLE IMPRESSION: No acute process. Dictated by: Shanon Porras M.D. on 12/17/2016 at 12:28 CT ANGIO CHEST PULMONARY EMBOLISM IMPRESSION: 1. No acute process. No pulmonary embolus. 2. Coronary artery disease. 3. No change in moderate hiatal hernia. Dictated by: Shanon Porras M.D. on 12/17/2016 at 14:22 Brief History Erik Mary is a 76-year-old man with past medical history significant for diastolic heart failure, paroxysmal atrial fibrillation, hypertension, CVA with right-sided deficit who presented to the [facility] emergency department today due to shortness of breath that started yesterday. Patient has been admitted multiple other times for shortness of breath due to diastolic heart failure exacerbation. He states that this feels quite similar to that. He does also complain of numbness in his right arm which is slightly worsened than his baseline numbness. He denies any slurred speech, confusion, unilateral weakness. Patient on my exam is quite anxious and he does notify me that he takes lorazepam 3 times a day for anxiety and has not been able to do so today due to his visit to the emergency department and subsequent hospitalization. The patient denies any chest pain, chest pressure, chills, fever, worsening lower extremity edema. Patient denies any orthopnea or paroxysmal nocturnal dyspnea. In the emergency department patient's vital signs were stable. He was given 40 mg of IV Lasix as well as some Tylenol. Hospital Course Erik Mary is a 76-year-old man with past medical history significant for diastolic heart failure, paroxysmal atrial fibrillation, hypertension, CVA with right-sided deficit who presented to the [facility] emergency department today due to shortness of breath that started yesterday. Dyspnea due to acute on chronic diastolic congestive heart failure. Present on admission, active. - Prior ECHOs have been difficult studies and unable to evaluate diastolic parameters however it is presumed the patient has diastolic CHF. - diuretics with Lasix 40 mg IV bid - Lisinopril 5 mg daily with Nitroglycerine, continue carvedilol - CHF clinic referral - low sodium diet and daily weight -- The patient's Lasix is increased to 40 mg evening dose every other day Orthostatic hypotension -- He is encouraged to stay well hydrated, use compression stockings, avoid quick movements especially while getting up from bed -- Home health PT QT prolongation noted on EKG during this hospitalization -- Improved on the day of discharge, patient is on several insomnia medications , trazodone has a side effect of increasing QT. We asked that the patient holds off on taking this medication -- We will request that the PCP reveals his medications at follow-up, other medications of concern include Ativan, escopiclone. Chronic issues, present on admission: Paroxysmal Atrial Fibrillation - Rate controlled currently. [id number] score 6. - monitor on telemetry - patient should be on anticoagulations, but risk may outweigh benefit. Will need to discussed prior to discharge. --Patient states he will discuss anticoagulation with his manager merchandising, as he has not been anticoagulated for a long time. Hypertension - Continuing Lisinopril 5 mg daily Benign Prostatic Hypertrophy - continuing Flomax 0.4 mg daily Anxiety -Patient states he take lorazepam TID -Continue lorazepam - Acetaminophen as needed for mild pain/fever/headache - Bowel regimen as needed - Antiemetic as needed CODE STATUS: FULL CODE Patient is admitted under inpatient status with expected length of stay greater than 2 midnights due to severity of presenting symptoms, risk of adverse event, and complexity of treatment plan. Exam Vital Signs (Last) Date Time Temp Pulse Resp B/P Pulse Ox O2 Delivery O2 Flow Rate FiO2 12/19/16 13:48 36.4 50 18 121/79 98 Room Air 12/17/16 11:55 2 Exam General: well-nourished, appropriately interactive HEENT: Normocephalic, atraumatic. External ears without defect. Pupils equal, round, and reactive to light and accommodation. Anicteric sclerae, moist conjunctivae, and no lid lag. Neck: Supple with full range of motion. No jugular venous distension. No thyromegaly. Cardiovascular: Regular rate and irregular rhythm with no murmurs, rubs, or gallops appreciated Pulmonary: Normal respiratory effort with no use of accessory muscles. Abdomen: Bowel tones present. Obese. Soft, nontender, nondistended. Extremities: No clubbing, cyanosis, edema, or lymphadenopathy appreciated. Skin: Normal temperature, turgor, and texture; no rash, ulcers, or subcutaneous nodules appreciated. Neurological: No focal deficits Psychiatric: Alert and oriented to person, place, and time. Test 12/17/16 12:05 12/17/16 12:31 12/17/16 12:54 12/18/16 19:45 White Blood Count 10.0th/mm3 (3.8-10.1) Red Blood Count 5.22mil/mm3 (4.40-5.80) Hemoglobin 16.2g/dL (13.8-17.2) Hematocrit 46.9% (41.0-50.0) Mean Corpuscular Volume 89.8fL (81-100) Mean Corpuscular Hemoglobin 31.0pg (27.0-35.0) Mean Corpuscular Hemoglobin Concent 34.5% (32.0-37.0) Red Cell Distribution Width 13.7% (12.3-15.4) Platelet Count 177bil/L (150-400) Neutrophils (%) (Auto) 61.6% (40-74) Lymphocytes (%) (Auto) 26.5% (14-46) Monocytes (%) (Auto) 10.1% (4-12) Eosinophils (%) (Auto) 1.1% (0-5) Basophils (%) (Auto) 0.2% (0-3) D-Dimer 1.52mg/L FEU (<0.50) Total Bilirubin 1.1mg/dL (0.0-1.2) Aspartate Amino Transf (AST/SGOT) 19U/L (0-50) Alanine Aminotransferase (ALT/SGPT) 16U/L (0-44) Alkaline Phosphatase 105U/L (25-160) Pro-B-Type Natriuretic Peptide 1611pg/mL (0-486) Total Protein 7.5g/dL (6.4-8.4) Albumin 4.2g/dL (3.4-5.0) Urine Color Straw (YELLOW) Urine Appearance Hazy (CLEAR,HAZY) Urine pH 8.0 (5.0-8.0) Urine Specific [place] 1.010 (1.003-1.035) Urine Protein Negativemg/dL (NEG,TRACE) Urine Glucose (UA) Negativemg/dL (NEGATIVE) Urine Ketones Negativemg/dL (NEGATIVE) Urine Occult Blood Negative (NEGATIVE) Urine Nitrite Negative (NEGATIVE) Urine Bilirubin Negative (NEGATIVE) Urine Urobilinogen Normalmg/dL (NORMAL) Urine Leukocyte Esterase Negative (NEGATIVE) Urine RBC 0-2/hpf (0-2) Urine WBC 0-5/hpf (0-5) Urine Epithelial Cells Occasional/hpf (NONE-MOD) Urine Crystals None seen (NONE SEEN) Urine Bacteria None/hpf (NONE-FEW) Urine Hyaline Casts None/lpf (NONE) Urine Granular Casts None seen (NONE SEEN) Urine Waxy Casts None seen (NONE SEEN) Urine Red Blood Cell Casts None seen (NONE SEEN) Urine White Blood Cell Casts None seen (NONE SEEN) Urine Mucus None seen (None Seen) Urine Trichomonas None seen (NONE SEEN) Urine Yeast None (NONE SEEN) Urine Culture Reflexed Not indicated Hold Urine Received (Received) Troponin T < 0.010ug/L (0.0-0.011) Test 12/19/16 02:30 Sodium Level 141mEq/L (134-144) Potassium Level 3.2mEq/L (3.5-5.2) Chloride Level 103mEq/L (97-108) Carbon Dioxide Level 21mmol/L (18-29) Blood Urea Nitrogen 22mg/dL (8-27) Creatinine 1.22mg/dL (0.76-1.27) Estimat Glomerular Filtration Rate 61mL/min (>59) Glucose Level 108mg/dL (60-99) Calcium Level 9.2mg/dL (8.5-10.1) Discharge Medications Discharge Medications Atorvastatin Calcium (Atorvastatin Calcium) 40 Mg Tablet 40 MG PO HS Prescribed by: NATALIA POLO MD Carvedilol (Carvedilol) 3.125 Mg Tablet 3.125 MG PO BIDWM Prescribed by: JEVON KRAUS MD Furosemide (Furosemide) 80 Mg Tab 40 MG PO DAILY (Reported) Furosemide (Furosemide) 40 Mg Tablet 40 MG PO Q2DAY Prescribed by: SARAH A SANDERS, DO Lisinopril (Lisinopril) 5 Mg Tablet 5 MG PO DAILY Prescribed by: JEVON KRAUS MD Sertraline HCl (Sertraline) 50 Mg Tablet 50 MG PO DAILY (Reported) Tamsulosin (Flomax) 0.4 Mg Capsule 0.4 MG PO DAILY Prescribed by: NATALIA POLO MD As needed Eszopiclone (Eszopiclone) 2 Mg Tablet 1 MG PO PRN Insomnia (Reported) Ketoconazole (Ketoconazole) 15 Gm Cream..g. 15 GM TP DAILY PRN PRN rash ( Reported) Lorazepam (Lorazepam) 0.5 Mg Tablet 0.5 MG PO q8 hr PRN PRN For Insomnia ( Reported) Followup Plan Follow-up plan Follow-up with PCP in one week regarding insomnia medications. Follow-up cardiology in 1-2 weeks, for heart failure and also to discuss possible anticoagulation for atrial fibrillation PT recommends d/c to home with HHPT 2x/week for 4 weeks to improve his functional strength and mobility. Discharge Diet: Low fat, Low Sodium, Heart Healthy Discharge Activity: Home Health Phyical Therapy Patient Instructions Please follow up with physical therapy please avoid quick movements especially while getting up from bed to avoid drop in blood pressure Please stay well hydrated We recommend compression stockings Please discontinue trazodone Time spent 35 min Sarah Sanders DO Dec 19, 2016 13:57
--- NOTE | 2016-12-19 14:27 | NUR ---
Social Work Note - Initial Assessment and D/C Erik Mary is a 76 yr old who was admitted for CHF exacerbation. EMR reviewed: Pt has Medicare and [facility] [employer]. Pt's PCP is Dr Owusu. Readmit score is 5. No LTC or VA benefits. DPOA paperwork in EMR. See attached CM initial assessment. REAL ESTATE SALESPERSON met with pt - introduced D/C planning and explained SW role. Pt lives at home alone. He is independent at baseline with ADL's - dependent on walker for support. He does not drive - states that his family or neighbors will help with chores, groceries when needed. He is open with Meals on Wheels. Pt states that he wants to go home - is not interested in SNF or Assisted living - States that he wants to remain as independent as possible. PT evaluated pt - recommends home with Home Health - REAL ESTATE SALESPERSON provided Choices list for Home Health - Pt is willing to have [facility] for RN PT. REAL ESTATE SALESPERSON discussed with MD - Signed F2F. Pt is able to d/c home today. Pt states that his son has his house keys and would help him get home. REAL ESTATE SALESPERSON called [facility] spoke with [facility] [phone]. They are able to open with Pt on Thursday. REAL ESTATE SALESPERSON faxed F2F. Plan: Home with family in POV - Referral to [facility] RN PT. JOAO Mckeon Addendum: 12/19/16 at 1451 by TONA MCCORMICK SS Amended: Links added.
--- NOTE | 2016-12-19 18:56 | NUR ---
Discharge Pt d/c home with efraín Lewis via wc by an aide at 1840. IV and tele d/c. Pt denied having pain. VSS. All personal belongings left with pt. Discharge teaching provided with Joshua present, per pts request. Phone number provided for Liana Villeda [phone]
== END 2016-12-19 18:39 | disposition home health service (06) | DRG 293 ==
LOC: SED 11:50 → MPC 16:41 → UNDODISIN 12-19 15:11
PROVIDERS: ADMIT Internal Medicine; ATTEND Family Medicine
DX: I50.33 Acute on chronic diastolic (congestive) heart failure (principal); I48.0 Paroxysmal atrial fibrillation; I10 Essential (primary) hypertension; E78.5 Hyperlipidemia, unspecified; F17.220 Nicotine dependence, chewing tobacco, uncomplicated; N40.0 Benign prostatic hyperplasia without lower urinary tract symptoms; F41.9 Anxiety disorder, unspecified; I69.398 Other sequelae of cerebral infarction

== ENCOUNTER 2017-01-04 12:13 | Emergency (ER) | payer MEDICARE, OTHER ==
[~2017-01-04] VITALS: Ht 165.1 cm; Wt 88.2 kg
[~2017-01-04 12:13] MED LIST changes: +ESZO2TAB30 PO; +FRSM80T PO; +KTC2C15 TP; +LORA0.5T PO; -NITR0.4T SL; -POLY17PO6 PO; +SERT50TA9 PO; -Senna/Docusate Sodium PO; -TRAZ-115 PO
[2017-01-04 12:15] VITALS: BP 197/110; PULSE 73; RESP 15; O2SAT 100
--- NOTE | 2017-01-04 12:21 | ED.REPORT ---
HPI-Extremity Problem Upper Date of Service Jan 04, 2017 ED Provider: History of Present Illness: right 4 th finger cut, happened around 1 am today fell at home, unsure of what he cut it on. was going to the bathroom. does not remember the fall, primary care is [facility]. needs tdap. right hand dominant Nursing Notes Stated Complaint: FINGER LACERATION Chief Complaint: Multiple Trauma/Fall Nursing Notes Reviewed: Yes Allergies: Coded Allergies: No Known Allergies (Verified Allergy, Unknown, 01/04/17) Scheduled Atorvastatin Calcium (Atorvastatin Calcium) 40 Mg Tablet 40 MG PO HS Carvedilol (Carvedilol) 3.125 Mg Tablet 3.125 MG PO BIDWM Furosemide (Furosemide) 80 Mg Tab 40 MG PO DAILY Furosemide (Furosemide) 40 Mg Tablet 40 MG PO Q2DAY Lisinopril (Lisinopril) 5 Mg Tablet 5 MG PO DAILY Sertraline HCl (Sertraline) 50 Mg Tablet 50 MG PO DAILY Tamsulosin (Flomax) 0.4 Mg Capsule 0.4 MG PO DAILY Scheduled PRN Eszopiclone (Eszopiclone) 2 Mg Tablet 1 MG PO PRN Insomnia Ketoconazole (Ketoconazole) 15 Gm Cream..g. 15 GM TP DAILY PRN PRN rash Lorazepam (Lorazepam) 0.5 Mg Tablet 0.5 MG PO q8 hr PRN PRN For Insomnia General Time Seen by MD: 12:20 Chief Complaint Finger injury right 4 Hx Obtained From: Patient Symptom Duration: Since onset Past Medical History Past Medical History 1. 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 (has not been on any anti-platelet medications since) 2. Peptic ulcer disease. 3. Depression and anxiety. 4. Hypertension. 4. Peripheral vascular disease with right superficial femoral artery stenosis August 2013 by Doppler. 6. Esophageal stricture with need for intermittent dilatation (last dilatation was January 02, [address] Tian ) EGD(January 02, 2014) Esophageal peptic stricture status post dilatation to 11.5 mm. Ulcerative esophagitis. Sliding hiatal hernia. 7. Macular degeneration. 8. Ulcerative esophagitis and peptic stricture 9. Hx of Daily alcohol dependence 10. Hx of clostridium perfringens 11. Atrial fibrillation, not on blood thinner currently 12. Seizures Reports: Congestive heart failure, Stroke Past Surgical History 1. Tonsillectomy. 2. Left rotator cuff repair. Reports: Back/neck surgery Family History pulmonary embolism Smoking History Former Smoker Social History Son is POA Alcohol Use: 3-5 per day Drug Use: Denies drug use Other Social History: Smokeless tobacco, Good social support, Lives alone, Occupation lives alone, lives in a RV 01/04/2017 Ambulatory Status Independent Review of Systems Basic Review of Systems Eyes: Vision NL, No discharge : No dysuria, No frequency Allergy / Immune: No allergy Psychiatric: Normal thought content Physical Exam Initial Vital Signs Vital Signs (First) Date Time Temp Pulse Resp B/P Pulse Ox O2 Delivery O2 Flow Rate FiO2 01/04/17 12:15 36.7 73 15 197/110 100 Room Air Initial VS: Reviewed, Vital signs abnormal General/Constitutional: Well-developed, Well-nourished Head / Eyes: Atraumatic, Normocephalic, PERRL ENT: Mucous membranes moist, Conjunctiva normal, No scleral icterus Neck: Supple, Non-tender, Full range of motion Respiratory: Breath sounds normal, Clear to auscultation, No respiratory distress Cardiovascular: Regular rate & rhythm, Heart sounds normal, Intact distal pulses Abdomen / GI: Soft, Non-tender, No guarding, No rebound, No distention Back: No CVA tenderness Lymphatic: No lymphadenopathy Lower Extremities: Vascular intact, Neuro intact, No swelling, No tenderness Skin: Warm, Dry, No cyanosis Neurologic: Alert, Oriented, Nonfocal Psychiatric: Mood/affect normal, Behavior normal, Normal thought content General/Constitutional: Awake, Alert, No acute distress, Well appearing, Well developed, Well hydrated Respiratory / Chest: Atraumatic, Breath sounds NL, Breath sounds = bilat, No respiratory distress Heart Rate / Rhythm: Positive: Irregular rhythm Upper Extremity / MS: Atraumatic, Inspection NL, Full range of motion right 4th finger has finger pad laceration. no active bleeding. Full range of motion. Cap refill less than 2 sec. Sensation intact distally Head / Eyes: Atraumatic, Normocephalic, PERRL, EOMI ENT: Atraumatic, Airway patent, Mucous membranes moist, Pharynx NL Abdomen: Atraumatic, Soft, Non-tender Interpretation & Diagnostics Interpretation & Diagnostics: PROCEDURE: CT BRAIN WITHOUT CONTRAST ([id number]) INDICATIONS: 76 year-old male with fall and amnesia. TECHNIQUE: Noncontrast 4.5 mm thick angled axial sections acquired from the foramen magnum to the vertex, with coronal reformats. COMPARISON: [facility], CT, CT BRAIN WO CON, 10/23/2015, 12:35. [facility], CT, CT BRAIN WO CON, 05/09/2015, 14:51. FINDINGS: Image quality: Excellent. CSF spaces: Basal cisterns are patent. No extra-axial fluid collections. The ventricles are symmetric in size and shape. Brain: No intracranial bleeds or masses. There is mild cerebral volume loss for age, with resultant ventricular and sulcal prominence. [place]-white matter interface appears intact. There is intracranial internal carotid artery atherosclerosis. Skull and face: Calvarium and visualized facial bones appear intact, without suspicious lesions. Sinuses: Visualized mastoids are clear. There is patchy bilateral dependent mastoid air cell fluid. IMPRESSION: 1. No acute intracranial abnormalities after fall. 2. Patchy bilateral inferior mastoid air cell fluid may reflect early mastoiditis. Dictated by: Brian Sal M.D. on 01/04/2017 at 12:50 Approved by: Brian Sal M.D. on 01/04/2017 at 12:54 Lab Results Interpretation Result Diagram: 01/04/17 1305 01/04/17 1305 Test 01/04/17 13:05 White Blood Count 8.9th/mm3 (3.8-10.1) Red Blood Count 4.85mil/mm3 (4.40-5.80) Hemoglobin 15.3g/dL (13.8-17.2) Hematocrit 45.0% (41.0-50.0) Mean Corpuscular Volume 92.8fL (81-100) Mean Corpuscular Hemoglobin 31.5pg (27.0-35.0) Mean Corpuscular Hemoglobin Concent 34.0% (32.0-37.0) Red Cell Distribution Width 14.8% (12.3-15.4) Platelet Count 171bil/L (150-400) Neutrophils (%) (Auto) 64.0% (40-74) Lymphocytes (%) (Auto) 19.4% (14-46) Monocytes (%) (Auto) 13.9% (4-12) Eosinophils (%) (Auto) 1.5% (0-5) Basophils (%) (Auto) 0.2% (0-3) Sodium Level 138mEq/L (134-144) Potassium Level 4.2mEq/L (3.5-5.2) Chloride Level 101mEq/L (97-108) Carbon Dioxide Level 21mmol/L (18-29) Blood Urea Nitrogen 16mg/dL (8-27) Creatinine 1.07mg/dL (0.76-1.27) Estimat Glomerular Filtration Rate 71mL/min (>59) Glucose Level 118mg/dL (60-99) Lactic Acid Level 1.8mmol/L (0.4-2.0) Calcium Level 9.1mg/dL (8.5-10.1) Total Bilirubin 0.7mg/dL (0.0-1.2) Aspartate Amino Transf (AST/SGOT) 19U/L (0-50) Alanine Aminotransferase (ALT/SGPT) 17U/L (0-44) Alkaline Phosphatase 96U/L (25-160) Troponin T < 0.010ug/L (0.0-0.011) Pro-B-Type Natriuretic Peptide 1668pg/mL (0-486) Total Protein 7.2g/dL (6.4-8.4) Albumin 3.9g/dL (3.4-5.0) ECG Interpretation ECG Interpretation: chronic a flutter per Dr. Macdonald Interpreted by: ED physician X-Ray Interpretation Xray Interpretation: PROCEDURE: X-RAY FINGERS, TWO VIEWS RIGHT INDICATIONS: 76 year-old male with right fourth finger contusion and laceration. TECHNIQUE: AP hand, 2 views of the right fourth finger(s) acquired. COMPARISON: None. FINDINGS: Bones: No fractures or dislocations. No suspicious bony lesions. Soft tissues: No suspicious soft tissue calcifications. IMPRESSION: No acute bony injuries of the right fourth finger. Dictated by: Brian Sal M.D. on 01/04/2017 at 12:48 Approved by: Brian Sal M.D. on 01/04/2017 at 12:49 Procedures Laceration Management Time: 13:10 Procedure Performed by: Allied health pract Consent / Setup / Site Prep: Informed consent provided, Consent from patient , Hand hygiene observed, Stand sterile technique Location of Wound: right 4th finger pad Wound Length: 2 cm Local Anesthesia: Lidocaine 1%, 4cc, 27g needle Digital Block: Yes Digit Involved: Ring finger right Wound Preparation: Normal saline Debridement: None Irrigation: 200 cc Foreign Body Explore / Removal: Explored for foreign body Repair Skin: ___ O (5), Nylon # Sutures - Skin: 7 Closure Layers: 1 Suture Technique: Simple Post-Procedure / Complications: Antibiotic oint applied, Dressing applied, No complications, Condition improved, Tolerated procedure well, Patient stable Re-Eval/Medical Decision Med Decision/Clinical Course 76 year old male reports having his right 4th finger cut this morning. He has no recollection of what caused the injury, does not remember any fall. Work up is negative for any brain bleed, cardiac event or sepsis. Discharge & Departure Impression: Primary Impression: Fall Encounter type: initial encounter Qualified Code: W19.XXXA - Unspecified fall, initial encounter Additional Impressions: Finger laceration Atrial flutter, chronic Disposition: Home Patient Instructions: Fall Prevention for Older Adults (ED), Finger Laceration (ED) Additional Instructions: The head CT looks good. The finger x-ray does not show any sign of bony damage. You have full range of motion. The laceration has been repaired with 7 sutures. The sutures need to remain in place for 14 days. Apply bacitracin to the site with each dressing change. Your labs show an elevation in BNP at 1668. This may be your baseline. The EKG shows chronic a-flutter. At this time no indication to admit you. If you get up in the middle of the night to go bathroom , make sure you are awake before waking. Follow with with Dr. Owusu as needed. I am sorry this happened. Enjoy [facility] today! Referrals: Diego Owusu MD (PCP) EDSupervising Provider for APC: Josiah Macdonald MD copies to: Diego Owusu MD, Sue ARNP Jan 04, 2017 12:21
[2017-01-04] MEDS ORDERED: TdaP Vaccine 0.5 mL Inj IM ONE (12:35)
--- NOTE | 2017-01-04 12:51 | DRSVH ---
PROCEDURE: X-RAY FINGERS, TWO VIEWS RIGHT INDICATIONS: 76 year-old male with right fourth finger contusion and laceration. TECHNIQUE: AP hand, 2 views of the right fourth finger(s) acquired. COMPARISON: None. FINDINGS: Bones: No fractures or dislocations. No suspicious bony lesions. Soft tissues: No suspicious soft tissue calcifications. IMPRESSION: No acute bony injuries of the right fourth finger. Dictated by: Brian Sal M.D. on 01/04/2017 at 12:48 Approved by: Brian Sal M.D. on 01/04/2017 at 12:49
--- NOTE | 2017-01-04 12:57 | DRSVH ---
PROCEDURE: CT BRAIN WITHOUT CONTRAST ([id number]) INDICATIONS: 76 year-old male with fall and amnesia. TECHNIQUE: Noncontrast 4.5 mm thick angled axial sections acquired from the foramen magnum to the vertex, with c oronal reformats. COMPARISON: [facility], CT, CT BRAIN WO CON, 10/23/2015, 12:35. [facility], CT, CT BRAIN WO CON, 05/09/2015, 14:51. FINDINGS: Image quality: Excellent. CSF spaces: Basal cisterns are patent. No extra-axial fluid collections. The ventricles are symmet cameron in size and shape. Brain: No intracranial bleeds or masses. There is mild cerebral volume loss for age, with resultant ventricular and sulcal prominence. Mensah-white matter interface appears intact. There is intracranial internal carotid artery atherosclerosis. Skull and face: Calvarium and visualized facial bones appear intact, without suspicious lesions. Sinuses: Visualized mastoids are clear. There is patchy bilateral dependent mastoid air cell fluid. IMPRESSION: 1. No acute intracranial abnormalities after fall. 2. Patchy bilateral inferior mastoid air cell fluid may reflect early mastoiditis. Dictated by: Brian Sal M.D. on 01/04/2017 at 12:50 Approved by: Brian Sal M.D. on 01/04/2017 at 12:54
[2017-01-04 13:20] LABS: BASOPHILS % (AUTO) 0.2 % (0-3); EOSINOPHILS % (AUTO) 1.5 % (0-5); MONOCYTES % (AUTO) 13.9 % (4-12); Mean Corpuscular Hemoglobin 31.5 pg (27.0-35.0); Mean Corpuscular Volume 92.8 fL (81-100); Platelet Count 171 bil/L (150-400)
[2017-01-04 13:49] LABS: TROPONIN T < 0.010 ug/L (0.0-0.011)
[2017-01-04 14:05] VITALS: BP 181/102; PULSE 70; RESP 16; O2SAT 96
== END 2017-01-04 14:08 | disposition home or self-care (01) ==
LOC: SED 12:13
DX: S61.214A Laceration without foreign body of right ring finger without damage to nail, initial encounter (principal); W26.8XXA Contact with other sharp object(s), not elsewhere classified, initial encounter; Y93.89 Activity, other specified; Y92.019 Unspecified place in single-family (private) house as the place of occurrence of the external cause; Y99.8 Other external cause status; I48.92 Unspecified atrial flutter; I11.0 Hypertensive heart disease with heart failure; I50.9 Heart failure, unspecified; I48.91 Unspecified atrial fibrillation; F41.8 Other specified anxiety disorders; Z86.73 Personal history of transient ischemic attack (TIA), and cerebral infarction without residual deficits; Z87.891 Personal history of nicotine dependence; Z23 Encounter for immunization